=== PATIENT | female | born 1995 | race African-American/Black ===

== ENCOUNTER 2017-03-22 05:43 | Day surgery (SDC) | payer MEDICAID, SELFPAY ==
[2017-03-16 10:47] LABS: Hematocrit 39.1 % (37-47); Hemoglobin 12.8 g/dl (12.0-15.0); Mean Corp Hgb Conc 32.7 g/gl (32-36); Mean Corpuscular Hgb 29.1 pg (27.0-32.0); Mean Corpuscular Volume 88.9 fL (81-99); Mean Platelet Vol. 10.8 fl (6.2-12.0); Platelet Count 297 K/mm3 (150-450); RBC Distribution Width SD 48.5 fl (35.1-43.9); White Blood Count 6.5 K/mm3 (4.4-11.0)
[2017-03-16 10:49] LABS: Scan Indicated on CBC? Y/N NO
[2017-03-16 10:56] LABS: International Normalized Ratio 1.1; Partial Thromboplast Time 31.8 Seconds (24.1-36.2); Prothrombin Time (Protime)PT. 13.4 SECONDS (11.7-14.9)
[2017-03-16 11:20] LABS: Pregnancy, Serum, hCG Quali. NEGATIVE Negative (0-9 Nonpreg)
--- NOTE | 2017-03-21 | FALS_PTH ---
PATIENT: TERRIE LOPEZ LOC: [facility] [place] U#:[id number] AGE/SX: 21/F ROOM: RE03/22/[address]: Dr. Agus Mccord MD : 1995 BED: DIS: 03/22/2017 SPEC #: [id number] RECD: 03/22/17 13:40 STATUS: RODOLFO RETonia #: [id number] ANNETTA: 03/21/17 00:[address]: Agus Mccord DEPT: SURGICAL PATHOLOGY RECD BY: Paul Hilario ENTERED: 03/22/17 13:40 SP TYPE: FALL TUBES OTHR DR: No Primary Care Phys Tissues: Fallopian tube Procedures: Surgery Specimen Level II HEADER OPERATION: Laparoscopic salpingectomy, bilateral PRE-OP DIAGNOSIS: Sterilization request TISSUE SUBMITTED: Bilateral fallopian tubes MICROSCOPIC DIAGNOSIS Bilateral fallopian tubes, salpingectomy: Bilateral fallopian tubes including fimbrial ends, no pathologic diagnosis. SJ:raghav 03/23/17 MICROSCOPIC DESCRIPTION Slides are reviewed. GROSS DESCRIPTION Received is one container labeled with the patient's name and designated right and left fallopian tubes. The fallopian tubes are not designated. The specimen consists of two fallopian tubes including fimbrial ends with an average length of 7.5 and an average diameter of 0.5 cm. No mass lesions are seen. Assistant Softball Coach sections are submitted in two cassettes as follows: 1 ? one fallopian tube, 2 ? the other fallopian tube. / AM:raghav 03/22/17 TC:4 CPT: 38689 x2
[2017-03-22 06:12] VITALS: BP 114/72; PULSE 60; RESP 14; TEMP 36.8; O2SAT 100; BMI 19.5
[2017-03-22 06:12] LABS: Internal QC Validated? YES +Cl - CLEAR BKGD; Pregnancy, Urine Negative Negative
--- NOTE | 2017-03-22 07:39 | PCM.DC ---
You will use the following diet at home:: No restrictions Discharge Activity: Return to Normal Activity, May Drive, May not drive while taking narcotic pain medications., May Shower Return to work on:: 03/25/17 May shower in (days): 0 May resume sexual activity in: 2 weeks Call your doctor if your incision/area has: Sudden Increased Bleeding, Increased Pain/ Swelling, Increased Redness, Foul Smelling Discharge, Swelling at the incision site Call your doctor if you observe: Fever of 101 or Higher, Inability to urinate, Inability to have a bowel movement, Using more than one pad per hour, Shortness of breath, Chest pain, Calf discomfort, Uncontrolled pain Remove Dressing in (days):: 2 Cleanse incision/area with: Soap & Water Allergies/Adverse Reactions: Allergies No Known Allergies Allergy (Verified 02/22/17 11:12) Medications to take at Discharge Vit No.130/Iron/FA [ Tablet] 1 each PO DAILY 06/25/16 Ibuprofen [Motrin] 800 mg PO TID PRN PRN #30 tab 03/22/17 Oxycodone [Oxyir] 5 mg PO Q4H PRN PRN 7 Days #20 tab 03/22/17 The following prescriptions were given: Oxycodone [Oxyir] 5 mg PO Q4H PRN PRN 7 Days #20 tab PRN Reason: Severe Pain (6-10/10) Ibuprofen [Motrin] 800 mg PO TID PRN PRN #30 tab PRN Reason: pain or cramping Primary Care Physician: Care Physician,No Primary [Primary Care Provider] - Please Follow Up With: Agus Mccord MD When: one week Proposed Discharge Date: 03/22/17
--- NOTE | 2017-03-22 07:41 | PCM.OPRPT ---
Problem List (1) Request for sterilization Status: Chronic Report of Operation Date of Procedure: 03/22/17 Pre-Operative Diagnosis: Requests permanent sterilization Post-Operative Diagnosis: same Surgery/Procedure Performed:: Laparoscopic bilateral salpingectomy Description of Surgical Findings:: Normal appearing uterus, cervix, fallopian tubes and ovaries. Normal appearing liver, gallbladder, appendix, and stomach. turner splitter machine operator: Maria Del Caremn [place] Type of Anesthesia:: General Anesthesiologist: Abhinav Burns Specimen's removed: right and left fallopian tubes Drains: none Estimated Blood Loss (mL): minimal Fluids Replaced: 800cc Description of Procedure: Kirstin reconfirmed desire for permanent sterilization prior to being taken to the OR. She had an IV running. She was given two grams of Cefotetan IV prior to the case for surgical prophylaxis. General anesthesia was introduced without complication. She was then prepped and draped in the dorsal lithotomy position. SCDs were in place throughout the case and into recovery. The bladder was drained with a red rubber catheter. Attention was first directed to the vagina where a acorn style uterine manipulator was placed into the cervix. Attention was then directed to the abdomen where a 5 mm vertical incision was made in the lower base of the umbilicus. The underlying subcutaneous tissue was bluntly dissected down to the level of fascia using a Mayelin clamp. A veress needle was then placed through the umbilical defect into the abdominal cavity. The abdomen was then inflated to 12 Torr pressure with CO2 gas. The Veress needle was removed and replaced with a 5mm trocar and sleeve. The trocar was removed and replaced with the laparoscope. Findings were as mentioned previously. Two 5mm lateral side ports were placed under direct visualization of the laparoscope lateral to the inferior epigastric vessels and 6 cm below the level of the umbilicus. Hemostasis was excellent after placement. The left fallopian tube was then elevated and the mesosalpinx dissected from the distal fimbriated end to the cornua using the ligasure device. The tube was then amputated at the cornua. The tube was removed through the left port. In a similar fashion the right fallopian tube was removed. Hemostasis was excellent at the dissection sites. The lateral side ports were then removed under direct visualization of the laparoscope. Gas was evacuated from the abdomen and the umbilical port site was removed. The skin incisions were closed with 4-0 Monocryl suture. The incision sights were injected with 0.25% Marcaine for anesthetic purposes. The uterine manipulator was removed. Sponge lap and needle counts were correct. She was reversed from anesthesia and taken to the recovery room in stable condition. Grafts/Implants Used: none - Complications none - Admit VTE Documentation VTE Present on Admission: No VTE Mechan Device Prophylaxis: SCD's VTE Pharm Prophylaxis ordered?: No
[2017-03-22] MEDS: Bupivacaine 0.25% 30 ML Vial (08:09)
[2017-03-22 08:27] VITALS: BP 114/72; BP 129/90; PULSE 70; RESP 16; TEMP 36.2; O2SAT 100
[2017-03-22 08:45] VITALS: BP 114/72; BP 131/86; PULSE 48; RESP 16; O2SAT 100
[2017-03-22 09:00] VITALS: BP 114/72; BP 124/83; PULSE 42; RESP 14; O2SAT 99
[2017-03-22 09:15] VITALS: BP 114/72; BP 132/75; PULSE 45; RESP 14; TEMP 36.2; O2SAT 100
== END 2017-03-22 10:02 | disposition home or self-care (01) ==
LOC: SDC 05:44 → AC 05:45
PROVIDERS: Anesthesiology; Visit Provider Obstetrics & Gynecology
PROC: (CPT 58661; principal; 2017-03-22 07:15)
DX: Z30.2 Encounter for sterilization (principal); F17.200 Nicotine dependence, unspecified, uncomplicated
CPT/HCPCS: 58661; 36415; 81025; 84703; 85027; 85610; 85730; 86850; 86870; 86900; 88302; J7120; J2405

== ENCOUNTER 2017-05-25 19:34 | Emergency (ER) | payer MEDICAID, SELFPAY ==
[2017-05-25 19:37] VITALS: BP 124/74; PULSE 75; RESP 14; TEMP 36.6; O2SAT 100; BMI 19.5
--- NOTE | 2017-05-25 19:42 | NURSING ---
RN CALLED FOR EKG, PULLED OLD EKG'S FOR
--- NOTE | 2017-05-25 20:37 | EKG12_ITS ---
Test Reason : CP Blood Pressure : / mmHG Vent. Rate : 074 BPM Atrial Rate : 074 BPM P-R Int : 126 ms QRS Dur : 074 ms QT Int : 412 ms P-R-T Axes : 020 061 040 degrees QTc Int : 457 ms Normal sinus rhythm Normal ECG Confirmed by ANA DOWNEY, JENA ([id number]), telegraph editor JON HOWARD ([id number] on 05/29/2017 2:56:08 PM Referred By: NACHO Confirmed By:JENA PEREZ MD
--- NOTE | 2017-05-25 21:15 | RAD_ITS ---
STUDY: X-RAY CHEST REASON FOR EXAM: Female, 21 years old. Chest pain and shortness of breath x1 week TECHNIQUE: Frontal and lateral views of the chest. COMPARISON: None. FINDINGS: The lungs are clear and expanded. There is no demonstrated pleural abnormality. Normal size heart. Normal mediastinum and braydon. Normal visualized pulmonary arteries. Normal visualized aortic arch and descending thoracic aorta. There is a dextroscoliosis of the thoracic spine. Normal visualized ribs, clavicles, and shoulders. There is no demonstrated abnormality of the visualized soft tissue structures of the upper abdomen. RAD/Chest PA and Lateral IMPRESSION: Normal x-ray examination of the chest. Electronically Signed: Jose Means MD at 21:30 EDT , Service support ,
[2017-05-25 21:35] VITALS: BP 140/86; PULSE 67; RESP 12; O2SAT 100
[2017-05-25 21:40] LABS: Absolute Lymphocyte Count 1.69 X10^3/ul (0.83-4.51); Absolute Neutrophil Count 4.1 X10^3/uL (2.0-7.7); Basophil# 0.01 X10^3/uL; Basophil% 0.2 % (0-1); Eosinophil# 0.02 X10^3/uL; Eosinophils% 0.3 % (0-5); Hematocrit 36.7 % (37-47); Hemoglobin 11.9 g/dl (12.0-15.0); Lymphocyte # 1.69 X10^3/ul (4.0); Lymphocyte % 26.9 % (19-41); Mean Corp Hgb Conc 32.4 g/gl (32-36); Mean Corpuscular Hgb 28.5 pg (27.0-32.0); Mean Corpuscular Volume 87.8 fL (81-99); Mean Platelet Vol. 10.5 fl (6.2-12.0); Monocyte# 0.47 X10^3/uL; Monocyte% 7.5 % (0-10); Neutrophil # 4.08 X10^3/uL (2.7-7.7); Neutrophil % 64.9 % (47-70); Platelet Count 257 K/mm3 (150-450); Red Blood Count 4.18 M/mm3 (4.2-5.4); White Blood Count 6.3 K/mm3 (4.4-11.0)
[2017-05-25 21:43] LABS: Anion Gap 6 (5-15); BUN 13 mg/dL (7-18); BUN/Creat Ratio 15.3 RATIO (10-20); Calcium,Total 8.8 mg/dL (8.5-10.1); Chloride 107 mmol/L (98-107); Creatinine, Serum 0.85 mg/dL (0.55-1.02); EST Glomerular Filtration Rate 88 mL/min (>60); Est Glom Filt Rate - Afr Amer 107 mL/min (>60); Estimated Creatinine Clearance 87.02 ml/min; Glucose 54 mg/dL (74-106); Potassium 3.8 mmol/L (3.5-5.1); Sodium Level 140 mmol/L (136-145)
[2017-05-25 21:49] LABS: POSITIVE COUNT NO; POSITIVE DIFFERENTIAL NO; POSITIVE MORPHOLOGY NO
[2017-05-25 21:57] LABS: D-Dimer Quantitative (DVT/PE) < 0.27 FEU/ug/m (0.27-0.49)
--- NOTE | 2017-05-25 22:22 | ED.DCSUM_ITS ---
- ER Visit Summary Date of Service: 05/25/17 Chief Complaint: Chest pain History of Present Illness: The patient is a 21 F who states that for about the past week she has had a intermittent left of sternal chest pain. Nonradiating. She notes that it feels like the wing gets knocked out of her but not as bad. She denies any sweating. Sometimes she feels like her heart is racing. She denies any weight gain or weight loss. She gave in November of this past year and denies any complications. She notes no leg swelling. No headaches. No rashes. Abdominal symptoms. Physical Examination: Afebrile vital signs are stable Gen: Well-nourished well-developed Head: Normocephalic atraumatic Eyes: Perrl EOMI ENT: TMs clear no rhinorrhea moist mucous membranes Neck: Supple no lymphadenopathy no JVD nontender CVS: Regular rate rhythm no murmurs normal S1-S2 Respiratory: No distress clear to auscultation bilaterally chest nontender Abdomen: Soft nontender nondistended normal bowel sounds no masses Back: Nontender Extremity: Nontender no edema Skin: Normal color no rash Neuro: alert orientated ?3 CN II-XII intact normal strength sensation reflexes gait cerebellar Psych: Normal affect normal mood Test Results: EKG shows sinus at a rate of 74. Chest x-ray is negative. Hemoglobin 11.9. Glucose of 54. D-dimer troponin negative. Emergency Department Course and Treatment: She does not appear symptomatic from her hypoglycemia. Patient states that she had 3 sloppy Jerry's and a bagel for dinner at work. The patient will be placed on Pepcid. She is to establish primary care. Referral was given. Impression: 1. Chest pain This note was generated with [employer] dictation software. It may contain incorrect words, spelling, and punctuation that were not noted in review of the chart prior to signing ED Disposition - Plan for ED Patient: Disposition: Home or Assisted Living Chief Complaint: Chest Pain Instructions: ED Chest Pain NonCardiac Prescriptions: Famotidine [Pepcid] 20 mg PO BID #28 tab Referrals: Nadiya Nice MD [STAFF PHYSICIAN] - (call today to arrange follow up )
[2017-05-25 22:32] VITALS: BP 125/71; PULSE 69; RESP 15; O2SAT 99
== END 2017-05-25 22:33 | disposition home or self-care (01) ==
PROVIDERS: Emergency Provider Emergency Medicine
DX: R07.9 Chest pain, unspecified (principal); Z72.0 Tobacco use
CPT/HCPCS: 71046; 80048; 84484; 85025; 85379; 93005; 99284

== ENCOUNTER 2017-07-18 10:27 | Emergency (ER) | payer MEDICAID, SELFPAY ==
[2017-07-18 10:27] VITALS: BP 112/67; PULSE 84; RESP 16; TEMP 36.7; O2SAT 99; BMI 18.7
[2017-07-18] MEDS: 0.9% Normal Saline 1,000 ML 1000 ML IV (11:01)
[2017-07-18] MEDS: Ondansetron 4 MG/2 ML Vial IV (11:02)
[2017-07-18] MEDS: Ketorolac 30 MG/ML Syringe IV (11:02)
[2017-07-18 11:14] LABS: Mucous, Urine 0 SEEN /hpf (<or=2+)
[2017-07-18 11:18] LABS: Absolute Lymphocyte Count 1.97 X10^3/ul (0.83-4.51); Absolute Neutrophil Count 3.2 X10^3/uL (2.0-7.7); Basophil# 0.02 X10^3/uL; Basophil% 0.4 % (0-1); Color, Urine Yellow (Yellow); Eosinophil# 0.04 X10^3/uL; Eosinophils% 0.7 % (0-5); Glucose, Dipstick Normal (Normal); Hematocrit 42.2 % (37-47); Hemoglobin 13.7 g/dl (12.0-15.0); Ketone-Dipstick 50 mg/dl (Negative); Leukocyte Esterase-Dipstick 100 /ul (Negative); Lymphocyte # 1.97 X10^3/ul (4.0); Lymphocyte % 34.6 % (19-41); Mean Corp Hgb Conc 32.5 g/gl (32-36); Mean Corpuscular Hgb 28.8 pg (27.0-32.0); Mean Corpuscular Volume 88.8 fL (81-99); Mean Platelet Vol. 10.6 fl (6.2-12.0); Monocyte# 0.42 X10^3/uL; Monocyte% 7.4 % (0-10); Neutrophil # 3.23 X10^3/uL (2.7-7.7); Neutrophil % 56.7 % (47-70); Nitrite-Dipstick Negative (Negative); Occult Blood-Urine 50 /ul (Negative); Platelet Count 251 K/mm3 (150-450); Protein-Dipstick 15 mg/dl (Negative); RBC Distribution Width CV 14.6 % (11.6-14.6); RBC Distribution Width SD 47.5 fl (35.1-43.9); Red Blood Count 4.75 M/mm3 (4.2-5.4); Specific Gravity, Urine 1.025 (1.002-1.030); Urine Bilirubin Dipstick Negative (Negative); Urine Clarity Sl. Cloudy (Clear); Urine Urobilinogen Normal (Normal); White Blood Count 5.7 K/mm3 (4.4-11.0)
[2017-07-18 11:20] LABS: POSITIVE COUNT NO; POSITIVE DIFFERENTIAL NO; POSITIVE MORPHOLOGY NO
[2017-07-18 11:24] LABS: Bacteria 1+ /hpf (None Seen); Red Blood Cells-Urine 0-5 SEEN /hpf (0-5); Squamous Epithelial Cells - UA 0-5 SEEN /hpf (5-10); White Blood Cells 10-25 SEEN /hpf (0-5)
[2017-07-18 11:31] LABS: Anion Gap 8 (5-15); BUN 12 mg/dL (7-18); BUN/Creat Ratio 14.3 RATIO (10-20); Calcium,Total 9.1 mg/dL (8.5-10.1); Chloride 106 mmol/L (98-107); Creatinine, Serum 0.84 mg/dL (0.55-1.02); EST Glomerular Filtration Rate 89 mL/min (>60); Est Glom Filt Rate - Afr Amer 108 mL/min (>60); Glucose 84 mg/dL (74-106); Lipase 145 U/L (73-393); Potassium 4.1 mmol/L (3.5-5.1); Sodium Level 141 mmol/L (136-145)
[2017-07-18 11:34] LABS: Pregnancy, Serum, hCG Quali. NEGATIVE Negative (0-9 Nonpreg)
[2017-07-18 11:44] LABS: Lactic Acid 0.6 mmol/L (0.4-2.0)
[2017-07-18] MEDS: Ceftriaxone 1 GM/50 ML BAG IV (12:29)
[2017-07-18 12:32] LABS: AST(SGOT) 14 U/L (15-37); Alanine Aminotransfer ALT/SGPT 16 U/L (13-56); Albumin, Serum 4.3 g/dL (3.2-5.0); Alkaline Phosphatase 65 U/L (45-117); Bilirubin, Direct 0.12 mg/dL (0.00-0.30); Globulin 4.2 g/dL (2.2-4.2); Protein, Total 8.5 g/dL (6.4-8.2)
[2017-07-18 12:42] VITALS: BP 114/78; PULSE 80; RESP 16; O2SAT 99
[2017-07-18 13:16] LABS: Chlamydia Trachomatis by PCR Negative (Negative); Neisserai gonorrhoeae by PCR Negative (Negative); Probe Check PASS; Sample Adequacy Control PASS; Specimen Processing Control PASS
--- NOTE | 2017-07-18 13:19 | ED.DCSUM_ITS ---
- ER Visit Summary Date of Service: 07/18/17 Chief Complaint: Abdominal pain History of Present Illness: The patient is a [address] Mccord. She does not have a primary care physician. She reports that she has abdominal pain that began 2 days ago. It is a sharp, cramping pain that is 10 out of 10 severity. It is worsened by stretching and relieved by remaining still. She has had nausea without vomiting. No diarrhea. Her last bowel movement was 2 days ago. Typically she does go every other day. She denies any dysuria or frequency. She reports her last menstrual period was approximately 1 week ago. She has been spotting off and on for the past month. Physical Examination: Vitals: Stable. Afebrile. General: Well-nourished and well-developed. Head: Normocephalic atraumatic. Neck: Supple, no lymphadenopathy. No JVD. Nontender. Cardiovascular: Regular rate and rhythm. No murmurs. Respiratory: No respiratory distress. Clear to auscultation bilaterally. Abdominal: Soft, mild diffuse tenderness to palpation that is worst in the epigastric region, nondistended, normal bowel sounds. No guarding, rebound, or peritoneal signs. Back: Nontender. Extremities: Nontender, no edema. Skin: Normal color, no rash. Neurologic: Alert and oriented ?3. Cranial nerves II through XII are intact. Normal strength and sensation. Psych: Normal affect. Test Results: CBC is normal. Chem-7 is normal. LFTs are remarkable for a total protein of 8.5 and AST of 14. Lipase is normal. UA has 10-25 white blood cells and 1+ bacteria. test is negative. GC chlamydia is negative. Emergency Department Course and Treatment: Patient was treated Toradol and Zofran IV and is resting comfortably. When her urine returned she was given a dose of Rocephin IV. Treatment Plan: Patient will be discharged with Macrobid and Zofran. Instructed to follow-up with Dr. Mccord in 2 days as previously scheduled. Return to the emergency department for any worsening symptoms. Disposition: To home in improved and stable condition. Impression: 1. UTI. This note was generated with [employer] software. It may contain incorrect words, spelling, and punctuation that were not noted in review of the chart prior to signing ED Disposition - Plan for ED Patient: Disposition: Home or Assisted Living Chief Complaint: Abd Pain Instructions: ED UTI Cystitis Female Prescriptions: Nitrofurantoin Macrocrystals [Macrobid] 100 mg PO Q12 #14 capsule Referrals: Agus Mccord MD [STAFF PHYSICIAN] - Keep Tanika appointment
== END 2017-07-18 13:39 | disposition home or self-care (01) ==
LOC: ED 10:46
PROVIDERS: Emergency Provider Emergency Medicine
DX: N39.0 Urinary tract infection, site not specified (principal); Z72.0 Tobacco use
CPT/HCPCS: 80048; 80076; 81001; 83605; 83690; 84703; 85025; 87491; 87591; 96365; 96375; 99283; J7030; A4216; J2405

== ENCOUNTER → 2017-09-19 09:05 | Outpatient (CLI) | payer MEDICAID, SELFPAY ==
[2017-09-19 10:44] LABS: Hematocrit 41.4 % (37-47); Hemoglobin 13.1 g/dl (12.0-15.0); Mean Corp Hgb Conc 31.6 g/gl (32-36); Mean Corpuscular Hgb 27.9 pg (27.0-32.0); Mean Corpuscular Volume 88.3 fL (81-99); Mean Platelet Vol. 10.6 fl (6.2-12.0); Platelet Count 324 K/mm3 (150-450); RBC Distribution Width CV 13.6 % (11.6-14.6); RBC Distribution Width SD 43.9 fl (35.1-43.9); Red Blood Count 4.69 M/mm3 (4.2-5.4); White Blood Count 6.7 K/mm3 (4.4-11.0)
[2017-09-19 10:48] LABS: Scan Indicated on CBC? Y/N NO
[2017-09-19 10:59] LABS: Hemoglobin A1c 5.3 % (4.2-6.3)
[2017-09-19 11:19] LABS: Follicle Stimulating Hormone 10.7 mIU/mL; Free T3 2.7 pg/mL (2.18-3.98); Luteinizing Hormone 9.1 mIU/mL; Prolactin 13.1 ng/mL; Thyroid Stim Hormone (TSH) 1.84 uIU/mL (0.358-3.74)
== END ==
PROVIDERS: Visit Provider Obstetrics & Gynecology
DX: N92.1 Excessive and frequent menstruation with irregular cycle (principal)
CPT/HCPCS: 36415; 83001; 83002; 83036; 84146; 84439; 84443; 84481; 85027

== ENCOUNTER → 2017-11-02 11:00 | Outpatient (CLI) | payer MEDICAID, SELFPAY ==
[2017-11-02 17:06] LABS: Chlamydia Trachomatis by PCR Negative (Negative); Neisserai gonorrhoeae by PCR Negative (Negative); Probe Check PASS; Sample Adequacy Control PASS; Specimen Processing Control PASS
[2017-11-07 09:44] LABS: HPV Reflexed? NOT INDICATED
== END ==
LOC: WOBLAB 11:01 → LABSPEC 11:01
PROVIDERS: Visit Provider Obstetrics & Gynecology
DX: Z12.4 Encounter for screening for malignant neoplasm of cervix (principal); Z11.3 Encounter for screening for infections with a predominantly sexual mode of transmission
CPT/HCPCS: 87491; 87591; 88175; G0145

== ENCOUNTER 2018-05-25 18:13 | Emergency (ER) | payer MEDICAID, SELFPAY ==
[2018-05-25 18:15] VITALS: BP 134/76; PULSE 95; RESP 16; TEMP 36.8; O2SAT 93; BMI 19.1
--- NOTE | 2018-05-25 18:51 | ED.DCSUM_ITS ---
- ER Visit Summary Date of Service: 05/25/18 Chief Complaint: Dysuria History of Present Illness: The patient is a 22 F who presents with dysuria, frequency and urgency for about a week. She has no vaginal discharge, she has no pelvic pain or dyspareunia. She has no suprapubic pain. She apparently just got a call from her boyfriend that he has a herpes outbreak. She has no outbreaks. Physical Examination: Her exam is unremarkable she has a soft and nontender abdomen no CVA tenderness, she appears well in no acute distress. Emergency Department Course and Treatment: Patient will be treated for urinary tract infection, GC and Chlamydia were sent, she has no current outbreak of herpes therefore no treatment is indicated at this time, she has no symptoms. She is educated about protection and how condoms do not protect against HSV. She understands all this now. Disposition: Discharge stable condition Impression: Urinary tract infection This note was generated with [employer] dictation software. It may contain incorrect words, spelling, and punctuation that were not noted in review of the chart prior to signing ED Disposition - Plan for ED Patient: Disposition: Home or Assisted Living Instructions: ED UTI Cystitis Female Prescriptions: Smz/Tmp Ds [Bactrim Ds] 1 tab PO BID #14 tab Referrals: Agus Mccord MD [Primary Care Provider] -
[2018-05-25 19:27] LABS: Mucous, Urine 0 SEEN /hpf (<or=2+)
[2018-05-25 19:45] LABS: Color, Urine Yellow (Yellow); Glucose, Dipstick Normal (Normal); Ketone-Dipstick 50 mg/dl (Negative); Leukocyte Esterase-Dipstick 100 /ul (Negative); Nitrite-Dipstick Negative (Negative); Occult Blood-Urine 50 /ul (Negative); Protein-Dipstick 30 mg/dl (Negative); Urine Bilirubin Dipstick Negative (Negative); Urine Clarity Sl. Cloudy (Clear); Urine Urobilinogen Normal (Normal)
--- NOTE | 2018-05-25 19:46 | ED.RN ---
sent additional urine for sample.
[2018-05-25 19:48] LABS: Internal QC Validated? YES +Cl - CLEAR BKGD; Pregnancy, Urine Negative Negative
[2018-05-25 20:17] LABS: White Blood Cells 0-5 SEEN /hpf (0-5)
[2018-05-25 20:18] LABS: Bacteria 1+ /hpf (None Seen); Red Blood Cells-Urine 0-5 SEEN /hpf (0-5); Squamous Epithelial Cells - UA 0-5 SEEN /hpf (5-10)
[2018-05-25 21:24] LABS: Chlamydia Trachomatis by PCR Negative (Negative); Neisserai gonorrhoeae by PCR Negative (Negative); Probe Check PASS; Sample Adequacy Control PASS; Specimen Processing Control PASS
== END 2018-05-25 19:47 | disposition home or self-care (01) ==
PROVIDERS: Emergency Provider Emergency Medicine; Family Provider Obstetrics & Gynecology; PCP Obstetrics & Gynecology
DX: N39.0 Urinary tract infection, site not specified (principal); Z20.2 Contact with and (suspected) exposure to infections with a predominantly sexual mode of transmission; Z72.0 Tobacco use
CPT/HCPCS: 81001; 81025; 87491; 87591; 99282

== ENCOUNTER → 2018-07-19 13:41 | Outpatient (CLI) | payer MEDICAID, SELFPAY ==
[2018-07-19 18:30] LABS: Chlamydia Trachomatis by PCR Negative (Negative); Neisserai gonorrhoeae by PCR Negative (Negative); Probe Check PASS; Sample Adequacy Control PASS; Specimen Processing Control PASS
== END ==
PROVIDERS: Visit Provider Obstetrics & Gynecology
DX: Z11.3 Encounter for screening for infections with a predominantly sexual mode of transmission (principal)
CPT/HCPCS: 87491; 87591

== ENCOUNTER 2018-09-03 20:20 | Emergency (ER) | payer MEDICAID, SELFPAY ==
[2018-09-03 20:21] VITALS: BP 115/73; PULSE 106; RESP 17; TEMP 36.6; O2SAT 98; BMI 19.2
--- NOTE | 2018-09-03 20:30 | EKG12_ITS ---
Test Reason : CP Blood Pressure : / mmHG Vent. Rate : 101 BPM Atrial Rate : 101 BPM P-R Int : 116 ms QRS Dur : 082 ms QT Int : 336 ms P-R-T Axes : 076 047 022 degrees QTc Int : 435 ms Sinus tachycardia Nonspecific T wave abnormality Abnormal ECG Confirmed by RITA DOWNEY, PARI ([id number]), purchasing expeditor JON HOWARD ([id number]) on 09/05/2018 1:16:14 PM Referred By: DR DUEÑAS Confirmed By:MICHAEL SALINAS MD
--- NOTE | 2018-09-03 21:05 | ED.RN ---
PT REPORTS, I AM FEELING BETTER AND I NEED TO GO BACK TO WORK. I AM GOING TO LEAVE. PT EDUCATED TO RETURN TO ED FOR ANY NEW OR WORSENED SX. PT AMBULATES OUT OF DEPT BY SELF.
== END 2018-09-03 21:05 | disposition left against medical advice (07) ==
LOC: ED 21:38
PROVIDERS: Emergency Provider Emergency Medicine
DX: R69 Illness, unspecified (principal); Z53.21 Procedure and treatment not carried out due to patient leaving prior to being seen by health care provider
CPT/HCPCS: 93005

== ENCOUNTER → 2018-09-26 13:45 | Outpatient (CLI) | payer MEDICAID, SELFPAY ==
[2018-09-03 20:21] VITALS: BMI 19.2
--- NOTE | 2018-09-26 11:30 | ECC_PTH ---
PATIENT: TERRIE LOPEZ LOC: [facility] U#:[id number] AGE/SX: 29/F ROOM: RE09/26/[address]: Dr. Rene Chavez MD : 1995 BED: DIS: SPEC #: [id number] RECD: 09/26/18 13:44 STATUS: RODOLFO RETonia #: [id number] ANNETTA: 09/26/18 11:[address]: Rene Chavez DEPT: SURGICAL PATHOLOGY RECD BY: Derik Prakash ENTERED: 09/27/18 07:41 SP TYPE: ECC OT DR: Sejal Primary Care Phys Tissues: Endocervical Procedures: Surgery Specimen Level IV HEADER OPERATION: ECC PRE-OP DIAGNOSIS: Postcoital bleeding TISSUE SUBMITTED: ECC MICROSCOPIC DIAGNOSIS ECC: Fragments of benign endocervical mucosa, blood and mucous. Fragments of benign endometrial tissue may represent lower uterine segment. SJ:raghav 09/28/18 MICROSCOPIC DESCRIPTION Slides are reviewed. GROSS DESCRIPTION Received in fixative is one container labeled with the patient's name and designated ECC. The specimen consists of multiple fragments of hemorrhagic mucoid tissue that in aggregate measure 2.5 x 0.5 x 0.1 cm. The specimen is totally submitted in one cassette. / SJ:raghav 09/27/18 TC:4 CPT: 09257
[2018-10-03 09:41] LABS: HPV APTIMA, High Risk Negative (Negative)
== END ==
PROVIDERS: Referring Provider Obstetrics & Gynecology; Visit Provider Obstetrics & Gynecology
DX: Z12.4 Encounter for screening for malignant neoplasm of cervix (principal); N93.0 Postcoital and contact bleeding
CPT/HCPCS: 88175; 88305; G0145

== ENCOUNTER → 2018-11-14 13:54 | Outpatient (CLI) | payer MEDICAID, SELFPAY ==
[2018-11-16 08:56] LABS: HSV 1 IgG < 0.91 index (0.00-0.90)
[2018-11-17 08:08] LABS: HSV 1 By PCR Negative (Negative)
[2018-11-19 13:07] LABS: HSV 2 By PCR Positive (Negative)
== END ==
PROVIDERS: Visit Provider Obstetrics & Gynecology
DX: N76.6 Ulceration of vulva (principal)
CPT/HCPCS: 86695; 86696; 87529

== ENCOUNTER 2018-12-09 18:39 | Emergency (ER) | payer MEDICAID, SELFPAY ==
[2018-12-09 18:41] VITALS: BP 149/95; PULSE 89; RESP 14; TEMP 36.2; O2SAT 97; BMI 20.2
--- NOTE | 2018-12-09 19:19 | ED.VIS.DENTA ---
History of Present Illness Informant: Patient, Significant Other Onset: Yesterday Context: Gradual Onset Timing: Continuous Quality: Sharp Location: left upper mouth Current Severity: Moderate Maximum Severity: Moderate Worsened by: Eating Relieved by: - - Nothing Associated Symptoms: Facial Swellling Narrative: 23-year-old female presents with dental pain. She is been dealing with this tooth it is her left upper first molar for several months initially followed up with a dentist who told her needed to be pulled but refused to go back. She is having pain. Facial swelling. No fevers. No difficulty breathing swallowing or opening closing her mouth. No vomiting. Prior similar symptoms: Yes Recent Illness/Hospitalization: Yes <Alex Landers - Last Filed: 12/09/18 19:42> <Abhinav Dwyer - Last Filed: 12/09/18 23:33> Chief Complaint: Dental Past Medical History Smoking Status: Never smoker <Alex Landers - Last Filed: 12/09/18 19:42> <Abhinav Dwyer - Last Filed: 12/09/18 23:33> - Allergies and Home Meds Allergies/Adverse Reactions: Allergies No Known Allergies Allergy (Verified 12/09/18 18:41) Primary Care Physician: Care Physician,No Primary [Primary Care Provider] - Dentist,Your [STAFF PHYSICIAN] - Review of Systems All systems negative except as indicated General: Denies: Chills, Fever, Sweats ENT: Reports: - - Dental pain. Denies: Rhinorrhea, Sore throat Cardiovascular: Denies: Chest pain Respiratory: Denies: Dyspnea <Alex Landers - Last Filed: 12/09/18 19:42> Physical Exam Vital Signs/Narrative: Vital Signs Temp Pulse Resp BP Pulse Ox 12/09/18 18:41 97.2 F L 89 14 149/95 H 97 Inital Vital Signs reviewed: Yes General: Well nourished, Well developed Head: Normocephalic, Atraumatic ENT: Moist mucous membranes, No nasal trauma, TM's clear Mouth/Throat: Normal inspection lips/gums, Normal oral mucosa, No dental tenderness, No focal abscess, Normal posterior oropharynx, No sublingual edema. Negative for: Trismus, Widespread dental decay Neck: Supple, No lymphadenopathy, Nontender, No JVD Cardiovascular: Regular rate, Regular rhythm, No murmurs Respiratory: No distress, CTA bilaterally, Chest nontender Abdomen: Soft, Nontender, Nondistended, Normal bowel sounds, No masses Back: Nontender Extremities: Nontender, No edema Skin: Normal color, No rash Neurological: Alert, Oriented x3 Psychological: Normal affect <DaniiAlex johns - Last Filed: 12/09/18 19:42> Diagnostic/Tx/Re-eval - Medical Decision Making Patient is dealing with this dental pain for the last several months. She does not have a focal abscess. She does not have trismus. There is no sublingual edema. She will be placed on penicillin and given a prescription for Naprosyn. First doses were given in the emergency department. She will be referred to dental. She was advised to call tomorrow for an appointment. Return precautions given. She was discharged <Alex Landers - Last Filed: 12/09/18 19:42> - Medical Decision Making Patient was seen with me. I did a [id number] examination with the patient. Patient presents with left upper dental pain that is been getting worse. Patient states the pain is worse with chewing. Patient is concerned over possible sepsis from a dental infection. Patient denies any fevers. Vital signs are stable. Patient is afebrile. Patient is in no acute distress. Oral mucosa is pink and moist. There are multiple dental caries of the left upper molars. There is some mild gingival edema. There is no fluctuance. There is no evidence of any abscess. Neck is supple. Trachea is midline. There is no JVD. Patient was given prescriptions for penicillin and Naprosyn. Patient was instructed to follow-up with her dentist. Patient understood and was agreeable with the plan. All questions were answered. <Abhinav Dwyer - Last Filed: 12/09/18 23:33> ED Disposition <Alex Landers - Last Filed: 12/09/18 19:42> <Abhinav Dwyer - Last Filed: 12/09/18 23:33> - Plan for ED Patient: Disposition: Home or Assisted Living Diagnosis: Odontalgia Instructions: Dental Pain Prescriptions: Naproxen [Naprosyn] 500 mg PO BID PRN #20 tab Prescription Printed Penicillin V Potassium 500 mg PO 4X/DAY #40 tab Prescription Printed Referrals: Care Physician,No Primary [Primary Care Provider] - Dentist,Your [STAFF PHYSICIAN] -
[2018-12-09] MEDS: Penicillin Vk 250 MG Tablet 500 MG PO (20:07)
[2018-12-09] MEDS: Naproxen 500 MG Tablet PO (20:07)
== END 2018-12-09 20:11 | disposition home or self-care (01) ==
PROVIDERS: Emergency Provider Physician Assistant Medical
DX: K08.89 Other specified disorders of teeth and supporting structures (principal)
CPT/HCPCS: 99282

== ENCOUNTER 2019-06-24 07:08 | Day surgery (SDC) | payer MEDICAID, SELFPAY ==
[2019-06-19 16:07] LABS: Hematocrit 40.5 % (37-47); Hemoglobin 12.9 g/dL (12.0-15.0); Mean Corp Hgb Conc 31.9 g/dL (32-36); Mean Corpuscular Hgb 28.9 pg (27.0-32.0); Mean Corpuscular Volume 90.6 fL (81-99); Mean Platelet Vol. 10.4 fl (6.2-12.0); Platelet Count 277 K/mm3 (150-450); RBC Distribution Width CV 14.8 % (11.6-14.6); RBC Distribution Width SD 49.8 fl (35.1-43.9); Red Blood Count 4.47 M/mm3 (4.2-5.4); White Blood Count 7.5 K/mm3 (4.4-11.0)
[2019-06-19 16:10] LABS: International Normalized Ratio 0.9; Prothrombin Time (Protime)PT. 12.1 SECONDS (11.7-14.9)
[2019-06-19 16:11] LABS: Partial Thromboplast Time 28.8 Seconds (24.1-36.2)
[2019-06-19 16:33] LABS: EST Glomerular Filtration Rate 93 mL/min (>60); Est Glom Filt Rate - Afr Amer 112 mL/min (>60)
--- NOTE | 2019-06-23 21:37 | PCM.HP.BLA ---
History and Physical Date of Admission: 06/24/19 Surgical History and Physical Kirstin Thacker, a 23 year old female 2 0 0 0 2, presents for RAVH/LSO on June 24, 2019 at 11:00. -- LLQ Pain; Menorrhagia; Postcoital Bleeding -- Heavy menstrual bleeding with cramping and clots; speculum exam reveals no vaginal or cervicall lesions, normal discharge and moderate to small amount of menstrual blood; bimanual pelvic exam reveals no CMT, no adnexel tenderness or masses; oferred trial of Provera or COCs, or surgical consult for hysterectomy. For 2 years approximately she has been having irregular bleeding. She reports that she always bleeds after IC and that her left side is always very painful. She has monthly periods with irregular spotting on and off throughout the month. Vaginal bleeding which began 2 years ago.; which began after childbrith. It is aggravated by intercourse. Associated signs and symptoms are spotting.; Associated signs and symptoms are LLQ pain present nearly every day; L/S about a year ago showed normal pelvis. Additional comments are: just wants bleeding to stop.; Additional comments are: bleeding less on OCPs but still with heavy post coital bleeding; unable to do cryo to cervix due to proximity to posterior vaginal wall. MEDICATIONS HISTORY: Current medications prescribed by our practice are: 1. acyclovir 400 mg tablet, 1 po bid 2. Sprintec (28) 0.25 mg-35 mcg tablet, one tab PO daily ALLERGIES: NKDA Infections - chicken pox - unsure, will check varicella IgG today Illnesses - no serious past illnesses Accidents - no injuries of consequence Hospitalizations - Childbirth Hx Depression-- no meds as of 09/2017; Review of Systems: GENERAL - Denies fever, or chills SKIN - Denies skin changes EYES - Denies visual changes EARS - Denies difficulty hearing NOSE - Denies nasal congestion or bleeding MOUTH - Denies sore throat or difficulty swallowing NECK - Denies pain or swelling RESPIRATORY - Denies shortness of breath or wheezing CARDIOVASCULAR - Denies palpitations or chest pain GASTROINTESTINAL - Denies nausea, vomiting, diarrhea, constipation GENITOURINARY - Denies dysuria, frequency of urination, incontinence of urine MUSCULOSKELETAL - Denies joint or muscle pain NEUROLOGICAL - Denies localized numbness or weakness PSYCHIATRIC - Denies depression or anxiety ENDOCRINE - Denies heat or cold intolerance, weight loss or gain HEMATO-IMMUNOLOGIC - Denies excesive bleeding with cuts SOCIAL HISTORY: Alcohol Use - stopped drinking Smoking - Vap E- Cig Diet - balanced Diet Lifestyle - moderate stress lifestyle and some SO issues Exercise - walking and gym Seat Belt Use - always Employer - [employer] 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 Maternal history of DM II. Paternal history of Cerebrovascular accident(CVA) and DM II. MENSTRUAL HISTORY: LMP Known?- DefiniteAmount/Duration - 4 days, Regularity - Irregular, LMP - 05/21/19, Age Onset Menarche - 10 PAST PREGNANCIES: Total Pregnancies - 2; Full Term Pregnancies - 2; Premature - 0; Abortions, Induced - 0; Abortions, Spontaneous - 0; Ectopics - 0; Multiple Births - 0; Living Children - 2 SURGICAL HISTORY: 1. 06/04/2015 Lap Left ovarian cystectomy ; Dr Agus Mccord 2. 03/22/2017 Lap bilateral salpingectomy ; Dr Agus Mccord PHYSICAL EXAM BP- 140/84 Sitting, Right arm, regular cuff Weight- 123.24385 lbs Height- 65.5 inch BMI:20.20 CONSTITUTIONAL - NAD, well nourished, and well developed SKIN - No rash, lesions, or ulcers HEENT - Normocephalic, PERRLA, EOMI NECK - No nodes, no nuchal rigidity and thyroid normal size and texture LYMPH NODES - Palpation of lymph nodes in neck and groins within normal limits LUNGS - CTA x2 without wheezes, crackles or rales CARDIAC - Regular rate and rhythm without rubs, murmurs, or gallops BREAST - No dominant masses, no tenderness, no axillary adenopathy, no nipple discharge, no skin changes ABDOMEN - Without hepatosplenomegaly, distention, masses, rebound, or guarding; normal bowel sounds; no hernias EXTREMITIES - No edema or calf tenderness NEUROLOGICAL - Cranial nerves II-XII grossly intact PSYCHIATRIC - A and O to time, place, person, mood and affect External Genital Vagina - non-tender without lesions Urethra/Urethral Meatus - non-tender Bladder - non-tender Vagina - vaginal shah are pink and moist without loss of rugae and no evidence of atropy Cervix - No CMT, normal size and features, no lesions or polyps noted; oriented to left posterior vaginal wall Uterus - 5-6 cm in size, mobile and nontender Adnexa - clear without masses or tenderness ASSESSMENT/PLAN: 1. Abdominal Pain,LLQ, Menorrhagia and Postcoital Bleeding Have exhausted options for treating postcoital bleeding such as OCPs and unable to do cryo to the cervix due to proximity to posterior vagina. Discussed options for treatment and patient desires proceeding with RAVH/LSO given she has had tubal and bleeding has persisted. ECC was negative. Discussed RBAs of surgery and all questions answered.
[2019-06-24] VITALS (13 sets, daily range): BP systolic 100–132; BP diastolic 51–87; PULSE 54–85; RESP 14–16; TEMP 36.2–37.3; O2SAT 94–100; BMI 20.2; BMI 20.8
[2019-06-24] MEDS: Lactated Ringers 1,000 ML 100 ML IV ×2 (07:50→08:02)
--- NOTE | 2019-06-24 10:45 | HYST_PTH ---
PATIENT: TERRIE LOPEZ LOC: [facility] [place] U#:[id number] AGE/SX: 23/F ROOM: RE06/24/[address]: Dr. Rene Chavez MD : [id number] BED: DIS: 06/25/2019 SPEC #: [id number] RECD: 06/24/19 14:00 STATUS: RODOLFO MONA #: [id number] ANNETTA: 06/24/19 10:[address]: Rene Chavez DEPT: SURGICAL PATHOLOGY RECD BY: Derik Prakash ENTERED: 06/25/19 09:18 SP TYPE: HYSTERECT OTHR DR: No Primary Care Phys Tissues: Uterus, NOS Procedures: Surgery Specimen Level V HEADER OPERATION: Lap robotic hysterectomy, oophorectomy PRE-OP DIAGNOSIS: Abdominal pain LLQ, menorrhagia and postcoital TISSUE SUBMITTED: Uterus, cervix, left ovary MICROSCOPIC DIAGNOSIS Uterus, cervix and left ovary, hysterectomy and left oophorectomy: Cervix - chronic inflammation. - Negative for dysplasia. See comment. Endometrium - weakly proliferative endometrium. Myometrium - no pathologic diagnosis. Left ovary - physiologic follicular cysts (largest measuring 3.5 cm in greatest dimension). SJ:raghav 06/27/19 COMMENT The entire cervix is examined. Please make reference to previous specimens ([id number]) cervix at 7 o'clock, biopsy with diagnosis of mild to moderate squamous dysplasia and ([id number]) cervix at 4 o'clock, biopsy with diagnosis of mild squamous dysplasia and ([id number]) left ovarian cyst wall, cystectomy with diagnosis of consistent with physiologic follicular cyst and ([id number]) bilateral fallopian tubes, salpingectomy with diagnosis of bilateral fallopian tubes including fimbrial ends, no pathologic diagnosis. MICROSCOPIC DESCRIPTION Slides are reviewed. GROSS DESCRIPTION Received in fixative is one container labeled with the patient's name and designated uterus, cervix, left ovary. The specimen consists of a hysterectomy specimen consisting of uterus with cervix and detached ovary identified as left ovary. The uterus with cervix weighs 78 gm and measures 8.5 x 6 x 4 cm. The serosal surface is bravo, glistening. The ectocervical mucosa is unremarkable. The external os is slit-like in contour. The endocervical canal measures 3 cm in length and the endocervical mucosa is bravo, glistening and unremarkable. The triangular endometrial cavity measures 4 cm in length and up to 1.5 cm in width. The endometrium is bravo, glistening without any mass lesion and measures 0.1 cm in thickness. Sectioning of the uterine wall does not reveal any mass lesion and measures up to 2 cm in thickness. The soft to cystic left ovary measures 4 x 3.5 x 3 cm and weighs 18 gm. The outer surface is smooth without any papillation and inked black. Sections reveal 80% of the ovary is replaced by a cyst measuring 3.5 cm in greatest dimension. The cyst is filled with jimmy-colored fluid. The cyst wall is smooth without any papillation. Two smaller cysts are also noted measuring 0.5 and 0.3 cm in greatest dimension. Disability Specialist sections are submitted in eight cassettes as follows: 1 - anterior cervix, 2??posterior cervix, 3 & 4 - anterior uterine wall, 5 & 6 - posterior uterine wall, 7 & 8 - ovary. / DAGMAR:raghav 06/25/19 The rest of the cervix is submitted in four more cassettes, -12. / DAGMAR:raghav 06/26/19 TC:5 CPT: 03934
[2019-06-24] MEDS: Ropivacaine 0.5% 30 ML Vial (11:32)
--- NOTE | 2019-06-24 12:57 | OP.PCM_ITS ---
Report of Operation Date of Procedure: 06/24/19 Pre-Operative Diagnosis: LLQ Pain; Menorrhagia; Postcoital Bleeding Post-Operative Diagnosis: LLQ Pain; Menorrhagia; Postcoital Bleeding Surgery/Procedure Performed:: Robiotic Assisted Vaginal Hysterectomy and Left Oophorectomy Description of Surgical Findings:: 8 cm uterus with normal-appearing ovaries except for a 5 cm pendulous and cystic left ovary. Absent fallopian tubes. Cervix close to posterior vaginal wall. chemical test engineer: Benjamín Silva Type of Anesthesia:: General - Endotracheal Anesthesiologist: Ritesh Palacios Specimen's removed: Uterus and left ovary Drains: John to straight drain Estimated Blood Loss (mL): Minimal Fluids Replaced: Crystalloid Description of Procedure: Surgeon: Rene Chavez MD, FACOG Indication: This is a 23 year old patient who has been having problems with menorrhagia and postcoital bleeding after having had a tubal ligation performed. She is also been having problems with chronic left lower quadrant pain. Conservative measures have not been helpful. The patient has been counseled regarding the risks, benefits and alternatives of this procedure including the possibility of bleeding, infection, and injury to surrounding structures such as bowel bladder and all questions were answered. She understands that if BSO is needed that she will need to be on HRT for an indefinite period of time. Procedure: Pt taken to the operating room where, after induction of general anesthesia, the patient was prepped and draped in the usual sterile fashion and placed on a non-slip Huggy-u-vac device. Trendelenburg test was satisfactory. Bladder was drained of urine with a John catheter which was left in place. Anterior cervix grasped and cervix was dilated to about 3-4 mm. Uterus sounded to 8 cms. 0-Vicryl suture was placed at the 3:00 and 9:00 position of the cervix. A medium Advincula Kitchen Steward/Stewardess Uterine Manipulator was then placed in the uterus and attention was turned to the laparoscopic portion of the procedure. Ropivocaine 0.5% was injected approximately 2 cm superior to the umbilicus and an 8 mm robotic camera port was introduced directly with intraperitoneal placement confirmed with CO2 insufflation. 8 mm robotic side ports were introduced under direct visualization approximately 9.5 cm lateral and 2 cm inferior to the umbilical port. A 5 mm left upper quadrant port was introduced and airseal insufflation with CO2 was started. The above findings were noted. Robot was docked without difficulty and attention turned to the robotic portion of the procedure. Approximately 25 cc of Ropivicaine was used. Bilateral infundibulopelvic ligaments/mesosalpinx were ligated with 35 elaine bipolar coagulation to the level of the round ligament. The posterior aspect of the cervix was identified and then opened for about 1 cm using 25 watt monopolar cautery identifying the uterine manipulating device which had been placed vaginally. Bladder flap was opened and divided to the level of the round ligaments using monopolar cautery. Progressive bites were then ligated on each side of the cervix with 35 elaine bipolar cautery to the uterine arteries. The anterior vaginal mucosa was entered and cervix circumscribed with monopolar cautery. Uterus and left ovary were removed through the vagina. Vaginal cuff was closed first with 0-Vicryl Edna stitches placed at each angle followed by closure of the mid-cuff with 0-Monocryl V-lock suture in two layers. Pelvis was copiously irrigated with saline and the right and left ureter were noted to peristalse. Robot was undocked and trocars were removed with as much gas as possible. Incisions were closed with 4-0 Monocryl subcuticular sutures and incisions covered with steri-strips. The patient tolerated the procedure well and was taken to the recovery room in satisfactory condition. Sponge, instruments and needle counts were all correct. There were no apparent complications of the surgery. Cefotan 2 gms IV was given prior to the procedure. Estimated Blood Loss: Minimal Specimen to Pathology: Uterus and left ovary Grafts/Implants Used: None - Complications None - Admit VTE Documentation VTE Present on Admission: Yes VTE Mechan Device Prophylaxis: SCD's VTE Pharm Prophylaxis ordered?: Yes
--- NOTE | 2019-06-24 13:03 | DCINST_ITS ---
Discharge Diet: No Restrictions Discharge Activity: Return to Normal Activity, May Not Drive - while taking narcotic pain medications., May Shower, May Take a Tub Bath May resume sexual activity in: 6-8 weeks Call your doctor if your incision/area has: Continuous Slow Oozing, Sudden Inc reased Bleeding, Increased Pain/ Swelling, Increased Redness, Foul Smelling Discharge Call your doctor if you observe: Fever of 101 or Higher, Inability to urinate, Inability to have a bowel movement, Using more than one pad per hour Allergies/Adverse Reactions: Allergies No Known Allergies Allergy (Verified 06/24/19 07:36) Medications to take at Discharge Acyclovir [Zovirax] 400 mg PO BID 12/09/18 Vits [Prenatabs FA] 1 tab PO DAILY 06/18/19 Docusate Sodium [Colace] 100 mg PO BID PRN PRN #60 cap 06/24/19 Oxycodone [Oxyir] 5 mg PO Q6H PRN PRN 7 Days #20 tab 06/24/19 The following prescriptions were given: Docusate Sodium [Colace] 100 mg PO BID PRN PRN #60 cap PRN Reason: Constipation Transmission Status: Received by LIZ PALACIOS RD Oxycodone [Oxyir] 5 mg PO Q6H PRN PRN 7 Days #20 tab PRN Reason: Pain Score 6-10/10 Transmission Status: [facility] Primary Care Physician: Care Physician,No Primary [Primary Care Provider] - Test Results: Test results from this visit will be discussed in further detail at your follow- up appointment, if applicable. Please Follow Up With: Rene Chavez MD When: 2 to 3 weeks
[2019-06-24] MEDS: Dextrose 5%-Lactated Ringers 1,000 ML 150 ML IV ×2 (15:25→21:54)
[2019-06-24] MEDS: Ketorolac 30 MG/ML Syringe IV (17:00)
[2019-06-24] MEDS: Enoxaparin 30 MG/0.3 ML Syringe SC (20:01)
[2019-06-24] MEDS: oxyCODONE 5 MG Tablet PO (20:09)
[2019-06-24] MEDS: Ondansetron 4 MG/2 ML Vial IV (20:09)
[2019-06-24] MEDS: Acyclovir 200 MG Capsule 400 MG PO (22:27)
[2019-06-25] MEDS: Ketorolac 30 MG/ML Syringe IV (00:07)
[2019-06-25 03:20] VITALS: BP 113/52; PULSE 86; RESP 16; TEMP 37.2; O2SAT 98
[2019-06-25 05:58] VITALS: BP 118/66; PULSE 67; RESP 16; TEMP 36.8; O2SAT 99
[2019-06-25] MEDS: Ketorolac 10 MG Tablet PO (05:59)
[2019-06-25] MEDS: oxyCODONE 5 MG Tablet PO (07:03)
[2019-06-25 07:17] VITALS: O2SAT 98
[2019-06-25 08:13] LABS: Hematocrit 31.9 % (37-47); Hemoglobin 10.2 g/dL (12.0-15.0); Mean Corpuscular Volume 90.6 fL (81-99); Mean Platelet Vol. 11.2 fl (6.2-12.0); Platelet Count 225 K/mm3 (150-450); RBC Distribution Width CV 14.8 % (11.6-14.6); RBC Distribution Width SD 49.5 fl (35.1-43.9); Red Blood Count 3.52 M/mm3 (4.2-5.4); White Blood Count 9.4 K/mm3 (4.4-11.0)
[2019-06-25 08:39] LABS: Creatinine, Serum 0.79 mg/dL (0.55-1.02); EST Glomerular Filtration Rate 94 mL/min (>60); Est Glom Filt Rate - Afr Amer 114 mL/min (>60); Estimated Creatinine Clearance 98.63 ml/min
--- NOTE | 2019-06-25 08:39 | PN.OBGYN_ITS ---
Subjective: Patient without complaints. Tolerating diet well. John out but still unable to void. Denies flatus. Pain well controlled. No bleeding. Objective: Wounds are clean, dry, intact. Good urine output. Hemoglobin okay. - Physical Exam Vitals/I&O's: Vital Signs Temp Pulse Resp BP Pulse Ox 98.3 F 67 16 118/66 99 06/25/19 05:58 06/25/19 05:58 06/25/19 05:58 06/25/19 05:58 06/25/19 05:58 Oxygen Delivery Method Room Air Weight: 125 lb 7.088 oz Body Mass Index (BMI) 20.8 Intake and Output for Last 24 Hours 06/23/19 06/24/19 06/25/19 23:59 23:59 23:59 Intake Total 2864.17 / 3864.17 1707.5 / 1707.5 Output Total 250 / 1525 1950 / 1950 Balance 2614.17 / 2339.17 -242.5 / -242.5 Laboratory Results 06/25/19 07:42: WBC 9.4, RBC 3.52 L, Hgb 10.2 L, Hct 31.9 L, MCV 90.6, MCH 29.0, MCHC 32.0, RDW Std Deviation 49.5 H, RDW Coeff of Mary 14.8 H, Plt Count 225, MPV 11.2 06/25/19 07:42: Creatinine Pending, Est GFR (MDRD) Af Amer Pending, Est GFR (MDRD) Non-Af Pending Current Medications Acyclovir (Zovirax) 400 mg PO BID [facility] Last Admin: 06/24/19 22:27 Dose: 400 mg Documented by: Docusate Sodium (Colace) 100 mg PO BID PRN PRN PRN Reason: CONSTIPATION Hydromorphone HCl (Dilaudid Inj) 0.5 mg IV Q3H PRN PRN PRN Reason: Pain Score 4-10/10 Sodium Chloride () 250 mls @ 15 mls/hr IV .[id number] PRN PRN Reason: Saline Flush Sodium Chloride () 250 mls @ 15 mls/hr IV .[id number] PRN PRN Reason: Additional IVPB Infusion Ketorolac Tromethamine (Toradol) 10 mg PO Q6 [facility] Stop: 06/29/19 12:01 Last Admin: 06/25/19 05:59 Dose: 10 mg Documented by: Ondansetron HCl (Zofran) 4 mg IV Q4H PRN PRN PRN Reason: NAUSEA Last Admin: 06/24/19 20:09 Dose: 4 mg Documented by: Oxycodone HCl (Oxyir) 5 mg PO Q4H PRN PRN PRN Reason: Pain Score 4-10/10 Last Admin: 06/25/19 07:03 Dose: 5 mg Documented by: Simethicone (Mylicon) 80 mg PO [facility] Last Admin: 06/24/19 22:27 Dose: 80 mg Documented by: Sodium Chloride () 10 - 40 ml IV UD PRN PRN Reason: SALINE FLUSH Medical Necessity - Tobacco Use Smoking Status: Former smoker Tobacco Use: Vapor Assessment/Plan All Active Problems Ovarian cyst (Acute) Doing well postoperative day #1 status post robotic assisted vaginal hysterectomy and left oophorectomy. Will release to home with routine instructions.
[2019-06-25] MEDS: Acyclovir 200 MG Capsule 400 MG PO (09:43)
[2019-06-25 09:45] VITALS: BP 120/67; PULSE 86; RESP 16; TEMP 36.9; O2SAT 99
== END 2019-06-25 10:12 | disposition home or self-care (01) ==
LOC: SDC 07:09 → AC 07:10 → MS3 08:27
PROVIDERS: Referring Provider Obstetrics & Gynecology; Visit Provider Obstetrics & Gynecology
PROC: 0UT94ZZ Resection of Uterus, Percutaneous Endoscopic Approach (ICD-10-PCS; CPT 58552; principal; 2019-06-24 10:25)
DX: N93.0 Postcoital and contact bleeding (principal); N92.0 Excessive and frequent menstruation with regular cycle; Z87.891 Personal history of nicotine dependence; Z79.899 Other long term (current) drug therapy; N83.02 Follicular cyst of left ovary; Z11.59 Encounter for screening for other viral diseases
CPT/HCPCS: 00940; 58552; S2900; 36415; 82565; 85027; 85610; 85730; 86850; 86900; 86901; 87635; 88307; 99251; 99406; G2023; J7120; G0463; J0330; J2405; U0002

== ENCOUNTER → 2019-10-21 14:38 | Outpatient (CLI) | payer MEDICAID, SELFPAY ==
[2019-06-24 14:57] VITALS: BMI 20.8
== END ==
PROVIDERS: Visit Provider Student in an Organized Health Care Education/Training Program
DX: N39.0 Urinary tract infection, site not specified (principal)
CPT/HCPCS: 87077; 87086; 87088; 87186

== ENCOUNTER → 2020-01-22 10:27 | Outpatient (CLI) | payer MEDICAID, SELFPAY ==
[2020-01-22 09:19] VITALS: BMI 20.5
[2020-01-22 12:36] LABS: Absolute Lymphocyte Count 1.84 X10^3/uL (0.83-4.51); Absolute Neutrophil Count 3.6 X10^3/uL (2.0-7.7); Basophil# 0.02 X10^3/uL; Basophil% 0.3 % (0-1); Eosinophil# 0.04 X10^3/uL; Eosinophils% 0.7 % (0-5); Hemoglobin 12.6 g/dL (12.0-15.0); Lymphocyte # 1.84 X10^3/ul (4.0); Lymphocyte % 31.6 % (19-41); Mean Corp Hgb Conc 32.3 g/dL (32-36); Mean Corpuscular Hgb 29.5 pg (27.0-32.0); Mean Corpuscular Volume 91.3 fL (81-99); Mean Platelet Vol. 10.9 fl (6.2-12.0); Monocyte# 0.27 X10^3/uL; Monocyte% 4.6 % (0-10); NRBC Flagged by Analyzer 0 % (0-5); Neutrophil # 3.64 X10^3/uL (2.7-7.7); Neutrophil % 62.5 % (47-70); Platelet Count 270 K/mm3 (150-450); RBC Distribution Width CV 13.7 % (11.6-14.6); RBC Distribution Width SD 46.1 fl (35.1-43.9); Red Blood Count 4.27 M/mm3 (4.2-5.4); White Blood Count 5.8 K/mm3 (4.4-11.0)
[2020-01-22 13:13] LABS: AST(SGOT) 10 U/L (15-37); Alanine Aminotransfer ALT/SGPT 17 U/L (13-56); Alkaline Phosphatase 51 U/L (45-117); Anion Gap 5 (5-15); BUN 12 mg/dL (7-18); BUN/Creat Ratio 16.8 RATIO (10-20); Calcium,Total 9.2 mg/dL (8.5-10.1); Chloride 107 mmol/L (98-107); Creatinine, Serum 0.72 mg/dL (0.55-1.02); EST Glomerular Filtration Rate 105 mL/min (>60); Est Glom Filt Rate - Afr Amer 128 mL/min (>60); Globulin 4.1 g/dL (2.2-4.2); Glucose 86 mg/dL (74-106); Potassium 3.7 mmol/L (3.5-5.1); Protein, Total 8.1 g/dL (6.4-8.2); Sodium Level 139 mmol/L (136-145); Thyroid Stim Hormone (TSH) 1.51 uIU/mL (0.358-3.74)
== END ==
PROVIDERS: PCP Internal Medicine; Referring Provider Internal Medicine; Visit Provider Internal Medicine
DX: R01.1 Cardiac murmur, unspecified (principal)
CPT/HCPCS: 36415; 80053; 84443; 85025

== ENCOUNTER → 2020-01-29 12:59 | Outpatient (CLI) | payer MEDICAID, SELFPAY ==
[2020-01-22 09:19] VITALS: BMI 20.5
--- NOTE | 2020-01-29 13:02 | ECHOD_ITS ---
Reason For Study: Murmur Procedure This was a 2D Doppler, Color Flow transthoracic echocardiogram. The exam was of adequate technical quality. Exam performed in department. Left Ventricle Normal LV size. Left ventricular systolic function is normal. The estimated ejection fraction is 60 %. No evidence for diastolic dysfunction. No regional wall motion abnormalities noted. Right Ventricle Normal RV size. Normal systolic function. Atria Normal left atrium. Normal right atrium. No doppler evidence for ASD. Mitral Valve There is no mitral annular calcification. Normal mitral valve. Trivial mitral valve insufficiency. Tricuspid Valve The tricuspid valve is not well visualized. Trivial tricuspid valve insufficiency. Aortic Valve Based upon the 2D echocardiographic images obtained a bicuspid aortic valve with mild thickening/calcification cannot be excluded. Trivial aortic valve insufficiency. Pulmonic Valve The pulmonic valve is not well visualized. Trivial pulmonic valve insufficiency. Great Vessels The aortic root is not well visualized. Pericardium/Pleural No pericardial effusion. MMode/2D Measurements & Calculations LVIDd: 4.1 cm IVSd: 0.85 cm LA dimension: 2.5 cm LVIDs: 2.8 cm LVPWd: 0.78 cm FS: 31.5 % LAV(MOD-bp): 34.3 ml LA A4 area: 14.6 cm2 RA A4 area: 7.2 cm2 LAV(MOD-bp) Indexed: 21.7 ml/m2 LAV(MOD-sp2): 28.4 ml LAV(MOD-sp4): 37.4 ml Time Measurements MV dec time: 0.28 sec Doppler Measurements & Calculations MV E max jerrod: 94.7 cm/sec Lat Peak E' Jerrod: 14.7 cm/sec Med Peak E' Jerrod: 9.7 cm/sec MV A max jerrod: 75.9 cm/sec E/E' lat: 6.5 E/E' med: 9.7 MV E/A: 1.2 MV V2 max: 103.5 cm/sec MV P1/2t max jerrod: 102.9 cm/sec Ao V2 max: 130.3 cm/sec MV max P.3 mmHg MV P1/2t: 64.3 msec Ao max P.8 mmHg MV V2 mean: 52.0 cm/sec MV dec slope: 468.8 cm/sec2 MV mean P.3 mmHg MVA(P1/2t): 3.4 cm2 MV V2 VTI: 21.3 cm LV V1 max: 77.8 cm/sec PA V2 max: 102.1 cm/sec LV V1 max P.4 mmHg Interpretation Summary Left ventricular systolic function is normal. The estimated ejection fraction is 60 %. Trivial mitral valve insufficiency. Trivial tricuspid valve insufficiency. Based upon the 2D echocardiographic images obtained a bicuspid aortic valve with mild thickening/calcification cannot be excluded. Trivial aortic valve insufficiency. Trivial pulmonic valve insufficiency. No evidence for diastolic dysfunction. Consider further evaluation of aortic valve anatomy and physiology with transesophageal echocardiogram if clinically indicated. Ordering Physician: Franchesca Fournier Referring Physician: Franchesca Fournier Performed By: Renaldo Hinojosa RCS
== END ==
PROVIDERS: PCP Internal Medicine; Referring Provider Internal Medicine; Visit Provider Internal Medicine
DX: R01.1 Cardiac murmur, unspecified (principal)
CPT/HCPCS: 93306

== ENCOUNTER 2021-02-25 14:05 | Outpatient (CLI) | payer MEDICAID, SELFPAY ==
[2021-02-25 15:18] LABS: Follicle Stimulating Hormone 20.5 mIU/mL; Thyroid Stim Hormone (TSH) 0.39 uIU/mL (0.358-3.74)
== END 2021-02-25 23:59 | disposition short-term general hospital (02) ==
LOC: WOBLAB 14:08
PROVIDERS: PCP Internal Medicine; Referring Provider Obstetrics & Gynecology; Visit Provider Obstetrics & Gynecology
DX: R30.0 Dysuria (principal); N95.1 Menopausal and female climacteric states
CPT/HCPCS: 36415; 83001; 84443; 87086; 87088

== ENCOUNTER → 2022-04-13 | Outpatient (CLI) | payer MEDICAID, SELFPAY ==
[2022-04-13 09:40] LABS: Absolute Neutrophil Count 3.4 X10^3/uL (2.0-7.7); Basophil# 0.03 X10^3/uL; Basophil% 0.5 % (0-1); Eosinophil# 0.03 X10^3/uL; Eosinophils% 0.5 % (0-5); Hematocrit 41.8 % (37-47); Hemoglobin 13.7 g/dL (12.0-15.0); Lymphocyte % 33.2 % (19-41); Mean Corp Hgb Conc 32.8 g/dL (32-36); Mean Corpuscular Hgb 29.7 pg (27.0-32.0); Mean Corpuscular Volume 90.7 fL (81-99); Mean Platelet Vol. 9.6 fl (6.2-12.0); Monocyte# 0.34 X10^3/uL; Monocyte% 5.9 % (0-10); NRBC Flagged by Analyzer 0 % (0-5); Neutrophil # 3.41 X10^3/uL (2.7-7.7); Neutrophil % 59.6 % (47-70); Platelet Count 231 K/mm3 (150-450); RBC Distribution Width CV 13.5 % (11.6-14.6); RBC Distribution Width SD 45.3 fl (35.1-43.9); Red Blood Count 4.61 M/mm3 (4.2-5.4); White Blood Count 5.7 K/mm3 (4.4-11.0)
[2022-04-13 10:38] LABS: ALB/GLOB Ratio 0.9 RATIO (0.9-2.4); AST(SGOT) 14 U/L (15-37); Alanine Aminotransfer ALT/SGPT 18 U/L (13-56); Alkaline Phosphatase 42 U/L (45-117); Anion Gap 7 (5-15); BUN 10 mg/dL (7-18); BUN/Creat Ratio 12.4 RATIO (10-20); Calcium,Total 9.1 mg/dL (8.5-10.1); Chloride 105 mmol/L (98-107); Cholesterol 161 mg/dL (200); EST Glomerular Filtration Rate 90 mL/min (>60); Est Glom Filt Rate - Afr Amer 109 mL/min (>60); Globulin 4.3 g/dL (2.2-4.2); Glucose 89 mg/dL (74-106); High Density Lipoprotein 58 mg/dL; Potassium 3.9 mmol/L (3.5-5.1); Protein, Total 8.3 g/dL (6.4-8.2); Sodium Level 138 mmol/L (136-145); Thyroid Stim Hormone (TSH) 0.68 uIU/mL (0.358-3.74); Triglycerides 75 mg/dL; Very Low Density Lipoprotein 15 mg/dL (5-40)
== END | disposition home or self-care (01) ==
PROVIDERS: PCP Internal Medicine; Referring Provider Nurse Practitioner Gerontology; Visit Provider Nurse Practitioner Gerontology
DX: R07.9 Chest pain, unspecified (principal); R53.83 Other fatigue
CPT/HCPCS: 36415; 80053; 80061; 84443; 85025

== ENCOUNTER 2022-05-09 04:49 | Emergency (ER) | payer MEDICAID, SELFPAY ==
[2022-05-09 04:49] VITALS: BP 129/82; PULSE 78; RESP 14; TEMP 36.9; O2SAT 98; O2SAT 99; BMI 21.9
--- NOTE | 2022-05-09 05:30 | CT_ITS ---
EXAM: CT ABDOMEN AND PELVIS WITH INTRAVENOUS CONTRAST CLINICAL INDICATION: right lower abd pain TECHNIQUE: Helically acquired images were obtained of the abdomen and pelvis with intravenous contrast. This CT exam was performed using one or more of the following dose reduction techniques: automated exposure control, adjustment of the mA and/or kV according to patient size, and/or use of iterative reconstruction technique. This report was created using [employer] report generation technology. CONTRAST: IV 100mL Isovue-370 COMPARISON: None. FINDINGS: LOWER THORAX: Unremarkable. Lung bases are clear. No cardiomegaly. No significant pericardial effusion. ABDOMEN: LIVER: Unremarkable. Homogeneous. No focal mass. GALLBLADDER AND BILE DUCTS: Unremarkable. No calcified gallstones. No gallbladder distention or wall edema. No intra- or extrahepatic biliary ductal dilation. PANCREAS: Unremarkable. No focal cystic or solid mass. SPLEEN: Unremarkable. Normal size without focal cystic or solid mass. ADRENALS: Unremarkable. No nodules. KIDNEYS AND URETERS: Tiny nonobstructing stone in the right kidney. Normal renal size and position. STOMACH AND BOWEL: Unremarkable. No stomach or bowel distention. No focal inflammatory change. PELVIS: APPENDIX: The appendix is normal. BLADDER: Unremarkable. REPRODUCTIVE: Hysterectomy. ABDOMEN and PELVIS: INTRAPERITONEAL SPACE: Unremarkable. No ascites or other fluid collection. No free air. BONES/JOINTS: Unremarkable. No suspicious lytic or blastic abnormality. SOFT TISSUES: Unremarkable. No discrete abdominal or pelvic wall hernia. VASCULATURE: Unremarkable. Abdominal aorta is non-dilated. LYMPH NODES: Unremarkable. No enlarged lymph nodes. CT/Abdomen/Pelvis W IV Cont ONLY IMPRESSION: 1. No acute abnormalities identified in the abdomen/pelvis. 2. Tiny nonobstructing stone in the right kidney. No ureteral stone or renal obstruction. Electronically Signed: Carlo Medina MD at 6:35 EDT ,
--- NOTE | 2022-05-09 05:30 | ED.VIS.GI ---
HPI HPI - GI History of Present Illness Chief Complaint: Abd Pain Detail of Chief Complaint: Right lower quadrant abdominal pain for years since she had a hysterectomy Informant: patient Abdominal Pain/Flank Pain Onset: - (2 years since her hysterectomy.) Context: Gradual Onset Timing: Intermittent Quality: Aching Location: RLQ Current Severity: Mild Maximum Severity: Mild Worsened by: Nothing Relieved by: Nothing Nausea/Vomiting/Emesis GI Symptom: Positive for Nausea; Negative for Vomiting Onset: Today Quality: Negative for Nonbilious, Blood streaks, Coffee ground or Hematemesis Severity: Mild Diarrhea/Melena/Hematochezia GI Symptom: Negative for Diarrhea, Melena or Hematochezia Associated Symptoms Associated Symptoms: Negative for Dysuria, Frequency, Hematuria or Urgency Narrative Narrative: 26-year-old female had a hysterectomy done [address] Rene Chavez who has since retired. Since the surgery she has had intermittent right lower quadrant abdominal pain for 2 years. Said over the last week its been somewhat worse. Denies any dysuria. No fever. No weight change. Normal bowel movements. Believes that she had [address] and believes it is on the right. Denies any vaginal bleeding or discharge. Prior similar symptoms: Yes Recent Illness/Hospitalization: No PFSH PFSH Medical History Anemia Anxiety and depression Chest pain Heart murmur Herpes Mood disorder Ovarian cyst Request for sterilization Tachycardia Home Medications acyclovir 400 mg tablet 400 mg PO BID PRN 11/25/20 [History Last Taken Unknown] Allergy/AdvReac Type Severity Reaction Status Date / Time No Known Allergies Allergy Verified 04/13/22 13:46 Family History Father Hypertension Diabetes Myocardial infarction, Onset Age: 50 Heart disease Grandmother COPD (chronic obstructive pulmonary disease) Diabetes Hypertension Heart disease Myocardial infarction Mother Alcohol abuse Aunt Myocardial infarction no significant family history Surgical History H/O: hysterectomy History of tubal ligation History of vaginal delivery Social History Smoking Status: Never smoker Electronic Cigarette Use: with nicotine alcohol intake: current alcohol intake frequency: holidays/special occasions only substance use type: does not use what type of physical activity do you participate in: running ROS ROS ED ROS Narrative Abdominal pain. Mild nausea. Review of Systems ROS Unobtainable: Denies due to encephalopathy Constitutional Constitutional ED: Denies chills or fever(s) ENT ENT ED: Denies ear pain Cardiovascular Cardiovascular: Denies chest pain Respiratory/Chest Respiratory/Chest: Denies cough or dyspnea Gastrointestinal Gastrointestinal: Reports abdominal pain and nausea; Denies constipation, diarrhea, melena or vomiting Genitourinary Genitourinary ED: Denies dysuria or hematuria Musculoskeletal Musculoskeletal: Denies arthralgias Integumentary Denies abscess Neurologic Neurologic: Denies headache(s) Psychiatric Psychiatric: Denies anxiety Endocrine Endocrinology: Denies polydipsia Hematologic/Lymphatic Hematologic/Lymphatic: Denies easy bleeding Allergic/Immunologic Allergic/Immunologic ED: Denies mouth swelling or tongue swelling EXAM Physical Exam Narrative Exam Narrative: 26-year-old female no acute distress. Vital signs are stable afebrile. H EENT exam unremarkable. Moist extremities. Neck nontender no lymphadenopathy. Lungs clear to auscultation bilaterally. Heart regular rhythm rate about 80 no murmur. Abdomen soft nondistended normal bowel sounds no peritoneal signs. Right upper, left upper and left lower quadrant completely nontender. Minimal tenderness in the right lower quadrant. No true McBurney's point tenderness. No hernia or mass. No distention or signs of trauma. Moving all 4 extremities. Back nontender. Neurologically she is awake and alert. Benign exam. Minimal right lower quadrant tenderness. Const Vital Signs: 05/09/22 04:49 05/09/22 04:49 05/09/22 06:49 Temperature 98.5 F Temperature Source Temporal Pulse Rate 78 Respiratory Rate 14 18 Blood Pressure 129/82 H Blood Pressure Mean 97 Pulse Ox 99 98 Oxygen Delivery Method Room Air Room Air Positive well nourished and well developed; Negative for obese, cachectic, contractures or unkempt General Appearance ED: well developed and NAD; Negative for unkempt, cachectic, contractures, pallor or other Nutritional Appearance: Negative for cachectic or obese HEENT Reports moist mucous membranes normocephalic and atraumatic; Negative for trauma or tenderness Eyes PERRL and EOMs intact bilaterally General Eye ED: Negative for pale conjunctiva or scleral icterus Neck no lymphadenopathy, supple and no JVD General: Negative for tenderness Carotids: Negative for other Lymph Lymphatic: Negative for other Resp normal respiratory effort Effort and Inspection: Negative for respiratory distress Auscultation: Negative for rales, rhonchi or wheezes Cardio regular rate, regular rhythm, S1 normal heart sound, S2 normal heart sound and no murmurs Rate: Negative for bradycardia or tachycardic Rhythm: Negative for abnormal rhythm GI non-distended and no masses; Negative for non-tender GI Narrative: Minimal right lower quadrant tenderness. No hernia or mass. Inspection: Negative for abdominal distention Auscultation: normoactive bowel sounds Palpation: soft and tender; Negative for guarding, rigid, hepatomegaly, splenomegaly, hernia, mass, pulsatile mass or rebound tenderness present Back/Spine no CVA tenderness General Back: Negative for CVA tenderness Cervical Spine: Negative for cervical spine tenderness Thoracic Spine / Upper Back: Negative for thoracic spinal tenderness Lumbar Spine / Lower Back: Negative for lumbar spinal tenderness Coccyx: Negative for other Extremity full ROM General Extremety ED: Negative for edema or tenderness General Extremity: Negative for edema Neuro CN's II-XII intact bilaterally, moves all extremities and no sensory deficits noted Sensorium / Orientation: alert, oriented to person, oriented to place and oriented to time; Negative for orientation impaired, confused, lethargic or stuporous Sensory Exam: No sensory level loss detected Motor Exam: strength 5/5 throughout; Negative for general weakness Psych mental status grossly normal and thought process normal Appearance: Negative for unkempt Attitude: No agitated Mood & Affect: Negative for depressed, anxious or tearful Skin no wounds General Skin Exam: Negative for jaundice or pallor Lesions: no lesions Rashes: no rashes Trauma: Negative for abrasion Nails: Negative for discolored MDM MDM MDM Narrative Medical decision making narrative: 26-year-old with chronic right lower quadrant abdominal pain since she had a hysterectomy surgery 2 years ago. Believes her right ovary was left in place. Said worse pain over the last week. Clinically I highly doubt this is appendicitis but she does have right lower quadrant abdominal pain. I do not think it is a UTI. This could be scar tissue or adhesions. I do not see or feel a hernia at this time. CAT scan and labs being obtained. Repeat exam patient doing well at 9:10 AM. We went over all of her test results. She will be discharged home with outpatient follow-up. Chronic right lower quadrant abdominal pain of uncertain etiology. She requested some Motrin for pain and she did not want any narcotics or any stronger pain medication. History & Record Review Discussion w/independent historian: Patient Lab Data Attestation: I reviewed the patient's lab results. Lab results narrative: CBC normal. White count 8.3. H&H 12.7 and 39. Electrolytes are unremarkable gap of 5 normal BUN 10 creatinine 0.85. Liver enzymes are normal. Urinalysis is negative occult blood. No white cells. No nitrates. No bacteria. CAT scan shows no acute abnormality. Incidental finding of a stone in the right kidney. Labs: Laboratory Results - last 24 hr 05/09/22 05/09/22 05/09/22 05:00 05:00 06:15 WBC 8.3 RBC 4.36 Hgb 12.7 Hct 39.6 MCV 90.8 MCH 29.1 MCHC 32.1 RDW Std Deviation 45.9 H RDW Coeff of Mary 13.6 Plt Count 276 MPV 10.5 Immature Gran % (Auto) 0.400 Neut % (Auto) 56.7 Lymph % (Auto) 34.7 [place] % (Auto) 6.8 Eos % (Auto) 1.0 Baso % (Auto) 0.4 Absolute Neuts (auto) 4.7 Absolute Lymphs (auto) 2.89 Nucleated RBC % 0 Sodium 137 Potassium 3.5 Chloride 107 Carbon Dioxide 25.0 Anion Gap 5 BUN 10 Creatinine 0.85 Estim Creat Clear Calc 89.46 Est GFR (MDRD) Af Amer 103 Est GFR (MDRD) Non-Af 85 BUN/Creatinine Ratio 11.8 Glucose 97 Calcium 8.8 Total Bilirubin 0.30 AST 12 L ALT 17 Alkaline Phosphatase 43 L Total Protein 7.9 Albumin 3.9 Globulin 4.0 Albumin/Globulin Ratio 1.0 Urine Color Yellow Urine Clarity Clear Urine pH 6.5 Ur Specific [place] 1.015 Urine Protein 15 H Urine Glucose (UA) Normal Urine Ketones Negative Urine Occult Blood 50 H Urine Nitrite Negative Urine Bilirubin Negative Urine Urobilinogen Normal Ur Leukocyte Esterase 25 H Urine RBC 0-5 SEEN Urine WBC 0-5 SEEN Ur Squamous Epith Cells 0-5 SEEN Urine Bacteria 0 SEEN Urine Mucus 0 SEEN Radiography Diagnostic Testing: Clinical Impression(s) from Imaging Studies Abdomen/Pelvis CT 05/09/22 05:30 IMPRESSION: 1. No acute abnormalities identified in the abdomen/pelvis. 2. Tiny nonobstructing stone in the right kidney. No ureteral stone or renal obstruction. Electronically Signed: Carlo Medina MD at 6:35 EDT , Discharge Plan Triage Chief Complaint: Abd Pain ED Provider: Benjamín Bradford Dx/Rx/DC Orders Clinical Impression: Abdominal pain Instructions: Abdominal Pain Prescriptions: No Action acyclovir 400 mg tablet 400 mg PO BID PRN Primary Care Provider: Franchesca Fournier Referrals: Franchesca Fournier MD [Primary Care Provider] - 1 Week if not improving Activity Restrictions/Additional Instructions: Your labs, urinalysis and CAT scan were all unremarkable. This does not mean you are not having pain and just means there is nothing specifically we can find causing your pain. It may be secondary to scar tissue from your prior hysterectomy. Tylenol and Motrin for pain. Follow-up with your primary care physician if not improving Disposition Disposition: Home, Self Care
[2022-05-09 05:48] LABS: Absolute Lymphocyte Count 2.89 X10^3/uL (0.83-4.51); Absolute Neutrophil Count 4.7 X10^3/uL (2.0-7.7); Basophil# 0.03 X10^3/uL; Basophil% 0.4 % (0-1); Eosinophil# 0.08 X10^3/uL; Hematocrit 39.6 % (37-47); Hemoglobin 12.7 g/dL (12.0-15.0); Lymphocyte # 2.89 X10^3/ul (0.83-4.51); Lymphocyte % 34.7 % (19-41); Mean Corp Hgb Conc 32.1 g/dL (32-36); Mean Corpuscular Hgb 29.1 pg (27.0-32.0); Mean Corpuscular Volume 90.8 fL (81-99); Mean Platelet Vol. 10.5 fl (6.2-12.0); Monocyte# 0.57 X10^3/uL; Monocyte% 6.8 % (0-10); NRBC Flagged by Analyzer 0 % (0-5); Neutrophil # 4.74 X10^3/uL (2.7-7.7); Neutrophil % 56.7 % (47-70); Platelet Count 276 K/mm3 (150-450); RBC Distribution Width CV 13.6 % (11.6-14.6); RBC Distribution Width SD 45.9 fl (35.1-43.9); Red Blood Count 4.36 M/mm3 (4.2-5.4); White Blood Count 8.3 K/mm3 (4.4-11.0)
[2022-05-09 06:10] LABS: AST(SGOT) 12 U/L (15-37); Alanine Aminotransfer ALT/SGPT 17 U/L (13-56); Albumin, Serum 3.9 g/dL (3.2-5.0); Alkaline Phosphatase 43 U/L (45-117); Anion Gap 5 (5-15); BUN 10 mg/dL (7-18); BUN/Creat Ratio 11.8 RATIO (10-20); Calcium,Total 8.8 mg/dL (8.5-10.1); Chloride 107 mmol/L (98-107); Creatinine, Serum 0.85 mg/dL (0.55-1.02); EST Glomerular Filtration Rate 85 mL/min (>60); Est Glom Filt Rate - Afr Amer 103 mL/min (>60); Estimated Creatinine Clearance 89.46 ml/min; Glucose 97 mg/dL (74-106); Potassium 3.5 mmol/L (3.5-5.1); Protein, Total 7.9 g/dL (6.4-8.2); Sodium Level 137 mmol/L (136-145)
[2022-05-09 06:28] LABS: Bacteria 0 SEEN /hpf (None Seen); Mucous, Urine 0 SEEN /hpf (<or=2+)
[2022-05-09 06:31] LABS: Glucose, Dipstick Normal (Normal); Ketone-Dipstick Negative (Negative); Leukocyte Esterase-Dipstick 25 /ul (Negative); Nitrite-Dipstick Negative (Negative); Occult Blood-Urine 50 /ul (Negative); Protein-Dipstick 15 mg/dl (Negative); Specific Gravity, Urine 1.015 (1.002-1.030); Urine Bilirubin Dipstick Negative (Negative); Urine Urobilinogen Normal (Normal); Urine pH 6.5 (5.0 - 8.0)
[2022-05-09 06:34] LABS: Color, Urine Yellow (Yellow); Urine Clarity Clear (Clear)
[2022-05-09 06:49] VITALS: RESP 18
[2022-05-09 06:59] LABS: Red Blood Cells-Urine 0-5 SEEN /hpf (0-5); Squamous Epithelial Cells - UA 0-5 SEEN /hpf (5-10); White Blood Cells 0-5 SEEN /hpf (0-5)
[2022-05-09 08:00] VITALS: RESP 18
[2022-05-09] MEDS: Ibuprofen 600 MG Tablet PO (09:43)
== END 2022-05-09 09:49 | disposition home or self-care (01) ==
PROVIDERS: Emergency Provider Emergency Medicine; PCP Internal Medicine; Visit Provider Emergency Medicine
DX: R10.31 Right lower quadrant pain (principal); F17.290 Nicotine dependence, other tobacco product, uncomplicated
CPT/HCPCS: 74177; 80053; 81001; 85025; 99283; Q9967

== ENCOUNTER → 2022-06-27 | Outpatient (CLI) | payer MEDICAID, SELFPAY ==
--- NOTE | 2022-06-27 12:12 | ECHOD_ITS ---
Reason For Study: Chest Pain Procedure This was a 2D Doppler, Color Flow transthoracic echocardiogram. Exam performed in department. Left Ventricle Normal LV size. Left ventricular systolic function is normal. The estimated ejection fraction is 55 %. Normal diastology for age. No regional wall motion abnormalities noted. Right Ventricle Normal RV size. Normal systolic function. Atria Normal left atrium. Normal right atrium. Mitral Valve Normal mitral valve. Tricuspid Valve Normal tricuspid valve. Aortic Valve Trisinus/trileaflet aortic valve. Pulmonic Valve Normal pulmonic valve. Great Vessels Normal aortic root. The pulmonary artery is normal size. Normal inferior vena cava. Pericardium/Pleural No pericardial effusion. MMode/2D Measurements & Calculations LVIDd: 4.2 cm IVSd: 0.88 cm LA dimension: 2.9 cm LVIDs: 2.9 cm LVPWd: 0.80 cm RVDd: 3.9 cm FS: 30.9 % LAV(MOD-bp): 35.2 ml LVAd ap4: 28.3 cm2 SV(MOD-sp4): 46.2 ml LAV(MOD-bp) Indexed: 21.3 ml/m2 LVLd ap4: 7.7 cm LAV(MOD-sp2): 34.3 ml EDV(MOD-sp4): 83.7 ml LAV(MOD-sp4): 30.5 ml EDV(sp4-el): 88.2 ml LVAs ap4: 17.1 cm2 LVLs ap4: 6.2 cm ESV(MOD-sp4): 37.5 ml ESV(sp4-el): 40.1 ml EF(MOD-sp4): 55.2 % EF(sp4-el): 54.6 % SV(sp4-el): 48.1 ml LA A4 area: 13.9 cm2 RA A4 area: 9.7 cm2 Time Measurements MV dec time: 0.16 sec Doppler Measurements & Calculations MV E max jerrod: 77.6 cm/sec Lat Peak E' Jerrod: 18.8 cm/sec Med Peak E' Jerrod: 15.3 cm/sec MV A max jerrod: 51.2 cm/sec E/E' lat: 4.1 E/E' med: 5.1 MV E/A: 1.5 MV V2 max: 117.3 cm/sec MV P1/2t max jerrod: 117.3 cm/sec Ao V2 max: 137.7 cm/sec MV max P.5 mmHg MV P1/2t: 64.3 msec Ao max P.6 mmHg MV V2 mean: 51.1 cm/sec Ao V2 mean: 98.3 cm/sec MV mean P.3 mmHg MV dec slope: 534.5 cm/sec2 Ao mean P.4 mmHg MV V2 VTI: 23.4 cm MVA(P1/2t): 3.4 cm2 Ao V2 VTI: 27.5 cm AV (velocity ratio): 0.72 LV V1 max: 89.3 cm/sec PA V2 max: 83.2 cm/sec LV V1 max P.2 mmHg PA V2 mean: 62.6 cm/sec LV V1 mean P.7 mmHg LV V1 mean: 61.0 cm/sec LV V1 VTI: 19.8 cm ECHO/Echo Complete Interpretation Summary Normal LV size. Left ventricular systolic function is normal. The estimated ejection fraction is 55 %. Normal diastology for age. Trisinus/trileaflet aortic valve. Ordering Physician: Mayelin Tay Referring Physician: Franchesca Fournier M.D. Performed By: Renaldo Hinojosa RCS
--- NOTE | 2022-06-27 17:52 | STRESSREP_ITS ---
Stress Test Report Exercise myocardial perfusion stress test. 26-year-old lady with a history of chest pain Stress protocol: Resting EKG demonstrates normal sinus rhythm with rate of 93 bpm resting blood pressure is 120/82 mmHg. The patient exercised according to the regular Mando protocol for a total duration of 7 minutes and 45 seconds attaining a maximum heart rate of 181 bpm which was 93% of maximum predicted heart rate; the maximum workload was 10.1 metabolic equivalents. At rest there were no ST or T wave changes noted to suggest ischemia and at peak exercise upsloping ST changes only were noted which did not meet the criteria for ischemia. No clinical angina was noted the test was terminated due to the target heart rate being achieved/fatigu e. The peak blood pressure was 130/70 mmHg. Rate-pressure product was 18,400. Conclusion: Exercise stress test with no EKG criteria for ischemia or chest pain at a high workload
== END | disposition home or self-care (01) ==
LOC: CVS 12:11
PROVIDERS: PCP Internal Medicine; Referring Provider Nurse Practitioner Gerontology; Visit Provider Nurse Practitioner Gerontology
DX: R01.1 Cardiac murmur, unspecified (principal); Q23.1 Congenital insufficiency of aortic valve; R07.9 Chest pain, unspecified
CPT/HCPCS: 93017; 93306

== ENCOUNTER 2023-08-16 00:55 | Emergency (ER) | payer MEDICAID, SELFPAY ==
[2023-08-16 00:56] VITALS: BP 142/93; PULSE 82; RESP 12; TEMP 37; O2SAT 99
--- NOTE | 2023-08-16 02:35 | EDS_ITS ---
HPI History of Present Illness Chief Complaint: Anxiety Informant: patient and spouse/S.O. Narrative Narrative: Patient is a 27-year-old female with past medical history of anxiety and depression. She states that there has been a bunch of family issues recently and she states this is been increasing her anxiety. She reports this evening after watching TV with her significant other that she was trying to lay down and go to bed and she felt like her heart was racing and she noticed some chest discomfort and shortness of breath associated with this. Patient denies any recent surgery travel or history of DVT/PE. She denies any hormone use. She denies any family history of cardiac disease at a young age. She states that because of the persistent symptoms and need to ensure that she was not having a heart attack she presents for evaluation [facility] Medical History (Updated 08/16/23 @ 02:[address] Killian River, DO) Herpes Encounter for wellness examination in adult Mood disorder Anxiety and depression Tachycardia Chest pain Anemia Heart murmur Request for sterilization Ovarian cyst Home Medications ?Medication ?Instructions ?Recorded ?Last Taken ?Type acyclovir 400 mg tablet 400 mg PO BID PRN Herpetic 07/27/23 Unknown Rx exacerbation 7 days #14 tabs loratadine 10 mg tablet 10 mg PO DAILY PRN allergies 08/16/23 Unknown History Allergy/AdvReac Type Severity Reaction Status Date / Time No Known Allergies Allergy Verified 08/16/23 01:01 Family History Father Hypertension Diabetes Myocardial infarction, Onset Age: 50 Heart disease Grandmother COPD (chronic obstructive pulmonary disease) Diabetes Hypertension Heart disease Myocardial infarction Mother Alcohol abuse Aunt Myocardial infarction Surgical History History of vaginal delivery History of tubal ligation H/O: hysterectomy Social History Smoking Status: Current every day smoker tobacco type: e-cigarettes Electronic Cigarette Use: with nicotine alcohol intake: current alcohol intake frequency: holidays/special occasions only substance use type: does not use what type of physical activity do you participate in: running ROS ROS ED Constitutional Constitutional ED: Denies chills or fever(s) Eyes Eyes: Denies change in vision ENT ENT ED: Denies sore throat Cardiovascular Cardiovascular: Reports chest pain and racing heartbeat Respiratory/Chest Respiratory/Chest: Reports dyspnea; Denies cough Gastrointestinal Gastrointestinal: Denies abdominal pain, diarrhea, nausea or vomiting Genitourinary Genitourinary ED: Denies dysuria Musculoskeletal Musculoskeletal: Denies myalgias Integumentary Denies rash Neurologic Neurologic: Denies headache(s) Psychiatric Psychiatric: Reports anxiety and depression; Denies suicidal ideation or suicidal thoughts Hematologic/Lymphatic Hematologic/Lymphatic: Denies easy bleeding or easy bruising EXAM Physical Exam Const Vital Signs: 08/16/23 00:56 08/16/23 02:56 Temperature 98.6 F 98.1 F Temperature Source Oral Pulse Rate 82 70 Respiratory Rate 12 16 Blood Pressure 142/93 H 131/98 H Blood Pressure Mean 109 109 Pulse Ox 99 100 Oxygen Delivery Method Room Air Positive well nourished and well developed General Appearance ED: well developed; Negative for pallor HEENT HEENT Narrative: Normocephalic atraumatic Eyes PERRL and EOMs intact bilaterally General Eye ED: Negative for pale conjunctiva or scleral icterus Neck supple Chest Wall palpation of chest normal Chest Narrative: No bony deformity or crepitance noted Resp normal respiratory effort and clear to auscultation bilaterally Resp Narrative: No nasal flaring retractions tachypnea or accessory muscle use Patient is able to speak in full sentences without dyspnea Cardio regular rate and regular rhythm Rate: other Other Details: Heart is regular rate and rhythm without murmurs rubs or gallop Radial and carotid pulses are equal and symmetric Extremity normal to inspection Extremity Narrative: No asymmetric edema no pitting edema negative Homans' sign bilaterally Neuro oriented x3, CN's II-XII intact bilaterally and no sensory deficits noted Sensorium / Orientation: alert Motor Exam: strength 5/5 throughout Psych Psych Narrative: Patient has a nervous/anxious affect Skin no rashes or lesions noted General Skin Exam: Negative for jaundice or pallor MDM MDM MDM Narrative Medical decision making narrative: Patient presented to the ER hypertensive but otherwise with stable vitals. She is low risk for cardiovascular disease. History and exam is most consistent with anxiety. However I discussed with the patient the potential to perform basic laboratory studies including a troponin to assess for acute blood loss anemia acute kidney injury thyroid disorder electrolyte disturbance or acute coronary syndrome as a cause of her symptoms. I also recommended a chest x-ray to make sure there is no lung pathology to be the cause of her shortness of breath. The patient states that as her vitals are stable and my exam indicates this is most likely anxiety and not anything further and she does not want these test performed. An EKG was obtained which shows no signs of cardiac arrhythmia and no signs of ischemia indicating that the patient's symptoms are related to anxiety and not an underlying nefarious process. Therefore at this time as EKG is sinus rhythm without ischemic changes patient's vitals are overall stable and she does not want further testing to be discharged home History & Record Review Discussion w/independent historian: Patient and Significant other Discharge Plan Triage Chief Complaint: Anxiety ED Provider: Killian River Dx/Rx/DC Orders Clinical Impression: Anxiety, Acute nonspecific chest pain with low risk of coronary artery disease Instructions: ED Chest Pain, Uncertain Cause, ED Panic Attack Prescriptions: No Action acyclovir 400 mg tablet 400 mg PO BID PRN (Reason: Herpetic exacerbation) 7 Days Qty: 14 5RF loratadine 10 mg tablet 10 mg PO DAILY PRN (Reason: allergies ) Stand Alone Forms: ED Work / School Excuse Primary Care Provider: Franchesca Fournier Referrals: Franchesca Fournier MD [Primary Care Provider] - Print Language: Dominican Disposition Disposition: Home, Self Care Discharge Date/Time: 08/16/23 02:57
[2023-08-16 02:56] VITALS: BP 131/98; PULSE 70; RESP 16; TEMP 36.7; O2SAT 100
== END 2023-08-16 02:57 | disposition home or self-care (01) ==
PROVIDERS: Emergency Provider Emergency Medicine; PCP Internal Medicine; Visit Provider Emergency Medicine
DX: F41.9 Anxiety disorder, unspecified (principal); R07.89 Other chest pain; R06.02 Shortness of breath; F17.290 Nicotine dependence, other tobacco product, uncomplicated; Z79.899 Other long term (current) drug therapy
CPT/HCPCS: 93005; 99282

== ENCOUNTER 2023-09-18 15:57 | Emergency (ER) | payer MEDICAID, SELFPAY ==
[2023-09-18 15:57] VITALS: BP 145/93; PULSE 106; RESP 15; TEMP 36.6; O2SAT 98
[2023-09-18 16:56] LABS: Absolute Lymphocyte Count 1.21 X10^3/uL (0.83-4.51); Absolute Neutrophil Count 7.4 X10^3/uL (2.0-7.7); Basophil# 0.03 X10^3/uL; Basophil% 0.3 % (0-1); Eosinophil# 0.02 X10^3/uL; Eosinophils% 0.2 % (0-5); Hematocrit 41.7 % (37-47); Hemoglobin 13.7 g/dL (12.0-15.0); Lymphocyte # 1.21 X10^3/ul (0.83-4.51); Lymphocyte % 13.3 % (19-41); Mean Corp Hgb Conc 32.9 g/dL (32-36); Mean Corpuscular Volume 88.2 fL (81-99); Mean Platelet Vol. 10.2 fl (6.2-12.0); Monocyte% 4.4 % (0-10); NRBC Flagged by Analyzer 0 % (0-5); Neutrophil % 81.5 % (47-70); Platelet Count 261 K/mm3 (150-450); RBC Distribution Width SD 41.9 fl (35.1-43.9); Red Blood Count 4.73 M/mm3 (4.2-5.4); White Blood Count 9.1 K/mm3 (4.4-11.0)
[2023-09-18 17:10] LABS: Internal QC Validated? YES +Cl - CLEAR BKGD; Pregnancy, Serum, hCG Quali. NEGATIVE Negative
[2023-09-18 17:16] LABS: ALB/GLOB Ratio 0.9 RATIO (0.9-2.4); AST(SGOT) 15 U/L (15-37); Alanine Aminotransfer ALT/SGPT 15 U/L (13-56); Alkaline Phosphatase 43 U/L (45-117); Anion Gap 8 (5-15); BUN 7 mg/dL (7-18); Calcium,Total 9.4 mg/dL (8.5-10.1); Chloride 105 mmol/L (98-107); Creatinine, Serum 0.78 mg/dL (0.55-1.02); EST Glomerular Filtration Rate 93 mL/min (>60); Est Glom Filt Rate - Afr Amer 112 mL/min (>60); Estimated Creatinine Clearance 91.45 ml/min; Globulin 4.3 g/dL (2.2-4.2); Glucose 117 mg/dL (74-106); Potassium 3.8 mmol/L (3.5-5.1); Protein, Total 8.3 g/dL (6.4-8.2); Sodium Level 140 mmol/L (136-145)
--- NOTE | 2023-09-18 17:32 | EDS_ITS ---
HPI HPI - GI History of Present Illness Chief Complaint: Abd Pain Abdominal Pain/Flank Pain Onset: Today Context: Sudden Onset Timing: Continuous Quality: Sharp and Stabbing Location: Epigastric, RUQ and RLQ Worsened by: - (Standing up) Relieved by: Antacids and - (Flexion) Nausea/Vomiting/Emesis GI Symptom: Positive for Nausea and Vomiting Onset: Today Quality: Positive for Nonbilious; Negative for Blood streaks, Coffee ground or Hematemesis Diarrhea/Melena/Hematochezia GI Symptom: Negative for Diarrhea, Melena or Hematochezia Associated Symptoms Associated Symptoms: Positive for Frequency; Negative for Dysuria or Hematuria Narrative Narrative: Patient presents with abdominal pain that began today. Patient describes it as sharp and stabbing. Patient states it is mainly on the right side of her abdomen. Patient states it also goes into the epigastric area. Patient states it is worse when she stands straight up. Patient states it is better when she flexes forward. Patient states she took some Tums which also seem to help. Patient states she has been having some nausea and vomiting. Patient states her emesis is mainly stomach contents. Patient denies any hematemesis or coffee- ground emesis. Patient denies any diarrhea, melena, or hematochezia. Patient admits to some urinary frequency but denies any dysuria or hematuria. PFSH [facility] Medical History Herpes Encounter for wellness examination in adult Mood disorder Anxiety and depression Tachycardia Chest pain Anemia Heart murmur Request for sterilization Ovarian cyst Home Medications ?Medication ?Instructions ?Recorded ?Last Taken ?Type acyclovir 400 mg tablet 400 mg PO BID PRN Herpetic 07/27/23 Unknown Rx exacerbation 7 days #14 tabs loratadine 10 mg tablet 10 mg PO DAILY PRN allergies 08/16/23 Unknown History ondansetron 4 mg disintegrating 4 mg PO Q8H PRN PRN Nausea #10 tabs 09/18/23 Unknown Rx tablet Allergy/AdvReac Type Severity Reaction Status Date / Time No Known Allergies Allergy Verified 09/18/23 15:57 Family History Father Hypertension Diabetes Myocardial infarction, Onset Age: 50 Heart disease Grandmother COPD (chronic obstructive pulmonary disease) Diabetes Hypertension Heart disease Myocardial infarction Mother Alcohol abuse Aunt Myocardial infarction Surgical History History of vaginal delivery History of tubal ligation H/O: hysterectomy Social History (Updated 09/18/23 @ 18:[address] Abhinav Dwyer DO) Smoking Status: Current every day smoker tobacco type: e-cigarettes Electronic Cigarette Use: with nicotine alcohol intake: current alcohol intake frequency: holidays/special occasions only substance use type: marijuana what type of physical activity do you participate in: running ROS ROS ED Constitutional Constitutional ED: Denies chills or fever(s) Eyes Eyes: Denies blurry vision or change in vision ENT ENT ED: Denies rhinorrhea or sore throat Cardiovascular Cardiovascular: Denies chest pain or palpitations Respiratory/Chest Respiratory/Chest: Reports dyspnea; Denies cough Gastrointestinal Gastrointestinal: Reports abdominal pain, nausea and vomiting; Denies diarrhea or melena Genitourinary Genitourinary ED: Reports urinary frequency; Denies dysuria or hematuria Musculoskeletal Musculoskeletal: Reports back pain; Denies neck pain Integumentary Denies abscess or rash Neurologic Neurologic: Denies headache(s) or weakness Allergic/Immunologic Allergic/Immunologic ED: Denies mouth swelling or urticaria EXAM Physical Exam Const Vital Signs: 09/18/23 15:57 09/18/23 17:55 09/18/23 19:00 Temperature 97.8 F Temperature Source Temporal Pulse Rate 106 H 68 84 Respiratory Rate 15 16 16 Blood Pressure 145/93 H 134/83 H 144/96 H Blood Pressure Mean 110 100 112 Pulse Ox 98 100 100 Oxygen Delivery Method Room Air Room Air Room Air 09/18/23 20:02 Temperature 97.2 F L Temperature Source Pulse Rate 91 Respiratory Rate 19 H Blood Pressure 124/75 H Blood Pressure Mean 91 Pulse Ox 100 Oxygen Delivery Method Positive well nourished and well developed General Appearance ED: well developed and NAD HEENT Reports moist mucous membranes Neck supple and no JVD Resp normal respiratory effort and clear to auscultation bilaterally Cardio regular rate and regular rhythm GI non-distended Palpation: soft and tender epigastric, LLQ, RLQ, RUQ, periumbilical and suprapubic; Negative for guarding or rebound tenderness present Neuro CN's II-XII intact bilaterally, moves all extremities and no sensory deficits noted Sensorium / Orientation: alert Motor Exam: strength 5/5 throughout Psych mental status grossly normal and thought process normal MDM MDM MDM Narrative Medical decision making narrative: Differential diagnosis includes gastritis, viral illness, pancreatitis, cholecystitis, cholelithiasis, appendicitis, urinary tract infection, ureteral calculus, pyelonephritis, bowel obstruction, and perforation. CT scan of the abdomen pelvis will be obtained to assess for appendicitis, cholecystitis, pancreatitis, ureteral calculus, bowel obstruction, and perforation. CBC will be obtained to assess for leukocytosis and anemia. Comprehensive metabolic profile will be obtained to assess for hepatic function, renal function, and electrolyte abnormality. Urinalysis will be obtained to assess for urinary tract infection and hematuria. Nursing protocol orders were placed and a serum hCG was obtained to assess for . Lab Data Attestation: I reviewed the patient's lab results. Lab results narrative: Was reviewed and was within normal limits. Comprehensive metabolic profile was reviewed and was within normal limits. Serum hCG was reviewed and was negative. Urinalysis was reviewed. There is no evidence of urinary tract infection or hematuria. Labs: Laboratory Results - last 24 hr 09/18/23 09/18/23 16:44 17:29 WBC 9.1 RBC 4.73 Hgb 13.7 Hct 41.7 MCV 88.2 MCH 29.0 MCHC 32.9 RDW Std Deviation 41.9 RDW Coeff of Mary 13.0 Plt Count 261 MPV 10.2 Immature Gran % (Auto) 0.300 Neut % (Auto) 81.5 H Lymph % (Auto) 13.3 L [place] % (Auto) 4.4 Eos % (Auto) 0.2 Baso % (Auto) 0.3 Absolute Neuts (auto) 7.4 Absolute Lymphs (auto) 1.21 Nucleated RBC % 0 Sodium 140 Potassium 3.8 Chloride 105 Carbon Dioxide 27.0 Anion Gap 8 BUN 7 Creatinine 0.78 Estim Creat Clear Calc 91.45 Est GFR (MDRD) Af Amer 112 Est GFR (MDRD) Non-Af 93 BUN/Creatinine Ratio 9.0 L Glucose 117 H Calcium 9.4 Total Bilirubin 0.50 AST 15 ALT 15 Alkaline Phosphatase 43 L Total Protein 8.3 H Albumin 4.0 Globulin 4.3 H Albumin/Globulin Ratio 0.9 Serum , Qual NEGATIVE Urine Color Straw Urine Clarity Clear Urine pH 6.5 Ur Specific [place] 1.010 Urine Protein Negative Urine Glucose (UA) Normal Urine Ketones 15 H Urine Occult Blood 25 H Urine Nitrite Negative Urine Bilirubin Negative Urine Urobilinogen Normal Ur Leukocyte Esterase Negative Urine RBC 0 SEEN Urine WBC 0 SEEN Ur Squamous Epith Cells 0 SEEN Urine Bacteria 0 SEEN Urine Mucus 0 SEEN Radiography Diagnostic Testing: Clinical Impression(s) from Imaging Studies Abdomen/Pelvis CT 09/18/23 18:06 IMPRESSION: Negative CT of the abdomen and pelvis with intravenous contrast. Electronically Signed: Francesco Keane MD at 19:14 EDT , CT scan of the abdomen and pelvis was obtained. There is no acute process noted. There is no evidence of bowel obstruction or perforation. There is no evidence of appendicitis. There is no free air or free fluid. This was interpreted by the radiologist and was also independently reviewed by myself. Treatment and Re-Evaluation :: Nicotine cessation was discussed. Marijuana cessation was discussed. Patient was given IV fluids, morphine, and Zofran. Patient was feeling better on reevaluation. Patient was advised of her findings. Patient was given a note for work for today. Patient was instructed to follow-up with her primary care physician in 5 to 7 days. Patient was given a prescription for Zofran. Patient was instructed to drink plenty of fluids. Patient was instructed return if worse in any way. Patient understood and was agreeable with the plan. All questions were answered. Discharge Plan Triage Chief Complaint: Abd Pain ED Provider: Abhinav Dwyer Dx/Rx/DC Orders Clinical Impression: Abdominal pain, Nicotine vapor product user Instructions: ED Abdominal Pain Unkn Cause Fem Prescriptions: New ondansetron 4 mg tablet,disintegrating 4 mg PO Q8H PRN PRN (Reason: Nausea) Qty: 10 0RF No Action acyclovir 400 mg tablet 400 mg PO BID PRN (Reason: Herpetic exacerbation) 7 Days Qty: 14 5RF loratadine 10 mg tablet 10 mg PO DAILY PRN (Reason: allergies ) Stand Alone Forms: ED Work / School Excuse Primary Care Provider: Franchesca Fournier Referrals: Franchesca Fournier MD [Primary Care Provider] - 3-5 Days Print Language: Mongolian Disposition Disposition: Home, Self Care Discharge Date/Time: 09/18/23 20:07
[2023-09-18 17:47] LABS: Bacteria 0 SEEN /hpf (None Seen); Mucous, Urine 0 SEEN /hpf (<or=2+); Red Blood Cells-Urine 0 SEEN /hpf (0-5); Squamous Epithelial Cells - UA 0 SEEN /hpf (5-10); White Blood Cells 0 SEEN /hpf (0-5)
[2023-09-18 17:52] LABS: Color, Urine Straw (Yellow); Glucose, Dipstick Normal (Normal); Ketone-Dipstick 15 mg/dl (Negative); Leukocyte Esterase-Dipstick Negative /ul (Negative); Nitrite-Dipstick Negative (Negative); Occult Blood-Urine 25 /ul (Negative); Protein-Dipstick Negative (Negative); Urine Bilirubin Dipstick Negative (Negative); Urine Clarity Clear (Clear); Urine Urobilinogen Normal (Normal); Urine pH 6.5 (5.0 - 8.0)
[2023-09-18 17:55] VITALS: BP 134/83; PULSE 68; RESP 16; O2SAT 100
--- NOTE | 2023-09-18 18:06 | CT_ITS ---
EXAM: CT ABDOMEN AND PELVIS WITH INTRAVENOUS CONTRAST CLINICAL INDICATION: Abdominal pain TECHNIQUE: Helically acquired images were obtained of the abdomen and pelvis with intravenous contrast. This CT exam was performed using one or more of the following dose reduction techniques: automated exposure control, adjustment of the mA and/or kV according to patient size, and/or use of iterative reconstruction technique. CONTRAST: IV 100mL Isovue-370 COMPARISON: 05/09/2022 FINDINGS: LOWER THORAX: Unremarkable. Lung bases are clear. No cardiomegaly. No significant pericardial effusion. ABDOMEN: LIVER: Unremarkable. Homogeneous. No focal mass. GALLBLADDER AND BILE DUCTS: Unremarkable. No calcified gallstones. No gallbladder distention or wall edema. No intra- or extrahepatic biliary ductal dilation. PANCREAS: Unremarkable. No focal cystic or solid mass. SPLEEN: Unremarkable. Normal size without focal cystic or solid mass. ADRENALS: Unremarkable. No nodules. KIDNEYS AND URETERS: Unremarkable. Normal renal size and position. No hydronephrosis. STOMACH AND BOWEL: Unremarkable. No stomach or bowel distention. No focal inflammatory change. PELVIS: APPENDIX: No evidence of acute appendicitis. BLADDER: Unremarkable. REPRODUCTIVE: Unremarkable as visualized. No mass. ABDOMEN and PELVIS: INTRAPERITONEAL SPACE: Unremarkable. No ascites or other fluid collection. No free air. BONES/JOINTS: Unremarkable. No suspicious lytic or blastic abnormality. SOFT TISSUES: Unremarkable. No discrete abdominal or pelvic wall hernia. VASCULATURE: Unremarkable. Abdominal aorta is non-dilated. LYMPH NODES: Unremarkable. No enlarged lymph nodes. CT/Abdomen/Pelvis W IV Cont ONLY IMPRESSION: Negative CT of the abdomen and pelvis with intravenous contrast. Electronically Signed: Francesco Keane MD at 19:14 EDT ,
[2023-09-18] MEDS: Ondansetron 4 MG/2 ML Vial IV (18:16)
[2023-09-18] MEDS: 0.9% Normal Saline (1000mL) 1,000 ML 1000 ML IV (18:16)
[2023-09-18 19:00] VITALS: BP 144/96; PULSE 84; RESP 16; O2SAT 100
[2023-09-18 20:02] VITALS: BP 124/75; PULSE 91; RESP 19; TEMP 36.2; O2SAT 100
== END 2023-09-18 20:07 | disposition home or self-care (01) ==
PROVIDERS: Emergency Provider Emergency Medicine; PCP Internal Medicine; Visit Provider Emergency Medicine
DX: R10.9 Unspecified abdominal pain (principal); F17.290 Nicotine dependence, other tobacco product, uncomplicated; R11.2 Nausea with vomiting, unspecified; R35.0 Frequency of micturition; R06.00 Dyspnea, unspecified; M54.9 Dorsalgia, unspecified
CPT/HCPCS: 74177; 80053; 81001; 84703; 85025; 96361; 96374; 99283; J7030; A4216; J2405

== ENCOUNTER → 2023-10-20 | Outpatient (CLI) | payer MEDICAID, SELFPAY | END | disposition home or self-care (01) | LOC: LABSPEC 14:49 | PROVIDERS: PCP Internal Medicine; Referring Provider Advanced Practice Midwife; Visit Provider Advanced Practice Midwife | DX: R10.2 Pelvic and perineal pain (principal) | CPT/HCPCS: 87070; 87205 ==

== ENCOUNTER → 2023-10-27 | Outpatient (CLI) | payer MEDICAID, SELFPAY ==
--- NOTE | 2023-10-27 14:38 | US_ITS ---
STUDY: ULTRASOUND TRANSVAGINAL CLINICAL: Female, 28 years old. pelvic pain RIGHT -- S/P HYSTERECTOMY, LT OOPHARECTOMY TECHNIQUE: Transvaginal COMPARISON: None. FINDINGS: Uterus not visualized status post hysterectomy Normal uterine cervix. Normal right ovary, measuring 2.9 x 3.1 x 1.6 cm. There are multiple subcentimeter follicles without a dominant cyst. Left ovary not visualized status post oophorectomy. There is trace of fluid in the pelvis. US/Transvaginal Non- IMPRESSION: Postop change status post RAFAEL LSO. Subcentimeter right ovarian follicles without dominant cyst Trace of fluid within the cul-de-sac possibly due to recent ovulation. Electronically Signed: Gregor Carbone MD at 17:02 EDT ,
== END | disposition home or self-care (01) ==
LOC: US 14:37
PROVIDERS: PCP Internal Medicine; Referring Provider Advanced Practice Midwife; Visit Provider Advanced Practice Midwife
DX: R10.2 Pelvic and perineal pain (principal)
CPT/HCPCS: 76830

== ENCOUNTER 2024-06-22 21:08 | Emergency (ER) | payer MEDICAID, SELFPAY ==
[2024-06-22 21:09] VITALS: BP 132/87; PULSE 84; RESP 18; TEMP 36.3; O2SAT 98; BMI 19.4
--- NOTE | 2024-06-22 21:16 | CT_ITS ---
PROCEDURE: ABDOMEN/PELVIS W IV CONT ONLY 06/22/2024 REASON FOR EXAM: RIGHT SIDE ABD PAIN TECHNIQUE: Abdomen and pelvis CT with intravenous contrast. Coronal and Sagittal reconstruction series were provided. PATIENT PREPARATION: Per protocol ORAL CONTRAST TYPE: None. AMOUNT: mL CONTRAST: Omnipaque 350 VOLUME: 100 mL Not Provided Gauge IV One or more dose reduction techniques were used (e.g., Automated exposure control, adjustment of the mA and/or kV according to patient size, use of iterative reconstruction technique. COMPARISON: CT abdomen and pelvis 09/18/2023 FINDINGS: Lung bases: Unremarkable. Liver: Normal size. No mass. Gallbladder: No ductal dilation. Gallbladder is unremarkable. Spleen: Normal size. Pancreas: Normal size without evidence of mass surrounding inflammation or ductal dilation. Adrenals: Unremarkable. Kidneys: 4 mm right UVJ obstructing calculus with moderate right hydroureteronephrosis. Additional punctate right upper pole calculus and 3 mm left interpolar region nonobstructing calculus. Bladder: Decompressed with a circumferential wall thickening. Reproductive Organs: No pelvic mass. . Bowel: Stomach is unremarkable. No bowel dilation or wall thickening. Moderate colonic stool Appendix: The appendix is not identified. There is no inflammatory process identified in the right lower quadrant to suggest appendicitis. Lymph nodes: Unremarkable. Vasculature: The abdominal aorta and IVC are normal. Peritoneum / Retroperitoneum: No ascites. No pneumoperitoneum. Bones: No acute osseous abnormality. Soft tissue: No acute osseous abnormality. CT/Abdomen/Pelvis W IV Cont ONLY IMPRESSION: 4 mm right UVJ obstructing calculus with moderate right hydroureteronephrosis. Multiple other nonobstructing bilateral calculi. Reading Location: [facility]
--- NOTE | 2024-06-22 21:17 | ED.VIS.GI ---
HPI <Dr. Arturo Cantu DO - Last Filed: 06/22/24 22:39> HPI - GI History of Present Illness Chief Complaint: Abd Pain Informant: patient and friend Narrative Narrative: Presents with worsening right sided abdominal pain around 5 PM. Had some nausea vomiting prior no hematemesis last emesis hour ago. Total 5-10 episodes. No diarrhea. History of bilateral salpingectomy subsequent hysterectomy has been performed. Occasional alcohol. Denies recreational drug use including marijuana. Only ate crackers at 5 PM. Unable to keep things down. No allergies. Having urine frequency. No dysuria. Prior similar symptoms: No PFSH <Dr. Arturo Cantu DO - Last Filed: 06/22/24 22:39> PFSH Medical History Herpes Encounter for wellness examination in adult Mood disorder Anxiety and depression Tachycardia Chest pain Anemia Heart murmur Request for sterilization Ovarian cyst Home Medications ?Medication ?Instructions ?Recorded ?Last Taken ?Type ibuprofen 600 mg tablet 600 mg PO Q8H PRN PRN pain #20 06/22/24 Unknown Rx TABLETS ondansetron 8 mg disintegrating 8 mg PO Q8H PRN nausea and 06/22/24 Unknown Rx tablet vomiting #15 tabs Allergy/AdvReac Type Severity Reaction Status Date / Time No Known Allergies Allergy Verified 06/22/24 21:09 Family History Father Hypertension Diabetes Myocardial infarction, Onset Age: 50 Heart disease Grandmother COPD (chronic obstructive pulmonary disease) Diabetes Hypertension Heart disease Myocardial infarction Mother Alcohol abuse Aunt Myocardial infarction Surgical History History of vaginal delivery History of tubal ligation H/O: hysterectomy Social History adopted: No household members: children housing: apartment number of children: 2 current occupational status: employed current occupation: through [employer] leisure activities: exercise history of recent travel: No sexually active: Yes Smoking Status: Current every day smoker tobacco type: e-cigarettes Electronic Cigarette Use: with nicotine alcohol intake: current alcohol intake frequency: holidays/special occasions only substance use type: marijuana what type of physical activity do you participate in: running additional social history: Currently getting a divorce from Antonio FIERRO <Dr. Arturo Cantu DO - Last Filed: 06/22/24 22:39> ROS ED Constitutional Constitutional ED: Denies chills, fever(s) or sweats ENT ENT ED: Denies sore throat Cardiovascular Cardiovascular: Denies chest pain, leg edema, palpitations or racing heartbeat Respiratory/Chest Respiratory/Chest: Denies cough, dyspnea or dyspnea on exertion Gastrointestinal Gastrointestinal: Reports abdominal pain, nausea and vomiting; Denies diarrhea Genitourinary Genitourinary ED: Reports urinary frequency; Denies dysuria or hematuria Musculoskeletal Musculoskeletal: Denies back pain, extremity pain or neck pain Integumentary Denies rash or wounds Neurologic Neurologic: Denies headache(s), paresthesias or weakness EXAM <Dr. Arturo Cantu, - Last Filed: 06/22/24 22:39> Physical Exam Const Vital Signs: 06/22/24 21:09 06/22/24 23:08 Temperature 97.3 F L Temperature Source Temporal Pulse Rate 84 82 Respiratory Rate 18 16 Blood Pressure 132/87 H 114/78 Blood Pressure Mean 102 90 Pulse Ox 98 99 Oxygen Delivery Method Room Air Room Air Positive well nourished and well developed Constitutional Narrative: Nontoxic uncomfortable. General Appearance ED: well developed HEENT Reports moist mucous membranes normocephalic and atraumatic Eyes General Eye ED: Yes normal appearance of both eyes Neck full ROM Chest Wall Chest: Negative for tenderness Resp normal respiratory effort and normal air movement Effort and Inspection: symmetric chest movement; Negative for respiratory distress Cardio regular rate, regular rhythm and no murmurs Peripheral Pulses: pulses 2+ throughout GI normal to inspection, nondistended, normoactive bowel sounds GI Narrative: Tenderness right side abdomen upper and lower. Palpation: Negative for rebound tenderness present Extremity normal to inspection General Extremety ED: Negative for edema or tenderness General Extremity: Negative for edema Neuro oriented x3 and no sensory deficits noted Sensorium / Orientation: awake and alert Skin no rashes or lesions noted and no wounds <Dr. Tl Young MD - Last Filed: 06/22/24 23:46> Physical Exam Const Vital Signs: 06/22/24 21:09 06/22/24 23:08 Temperature 97.3 F L Temperature Source Temporal Pulse Rate 84 82 Respiratory Rate 18 16 Blood Pressure 132/87 H 114/78 Blood Pressure Mean 102 90 Pulse Ox 98 99 Oxygen Delivery Method Room Air Room Air MDM <Dr. Arturo Cantu, DO - Last Filed: 06/22/24 22:39> MDM MDM Narrative Medical decision making narrative: Interventions / MDM: Differential diagnosis: Abdominal pain, nausea and vomiting Diagnosis considered but do not suspect: N/A My EKG interpretation: N/A Imaging independently reviewed and interpreted by myself: CT abdomen pelvis IV contrast: Pending External documents reviewed: N/A Test considered but not ordered:N/A ED course: Vital stable nontoxic. Right side abdominal pain with vomiting. No distention. IV established for labs. Urine ordered. IV fluids Zofran morphine ordered. CT scan abdomen pelvis IV contrast for further evaluation. 2234: Patient declined the morphine therefore Toradol was given. Labs white count 14.2 lipase and liver enzymes normal. Creatinine 0.86. CT scan results pending. Clinically feeling much better nausea improved at this time. Patient signed out to night physician. Re-evaluation: stable Disposition discussed with patient/family/significant other: Patient Case discussed with consulting clinician: N/A This note was generated with [employer] dictation software. It may contain incorrect words, spelling, and punctuation that were not noted in checking the note before signing. Lab Data Attestation: I reviewed the patient's lab results. Labs: Laboratory Results - last 24 hr 06/22/24 06/22/24 21:23 22:30 WBC 14.2 H RBC 4.34 Hgb 13.0 Hct 38.4 MCV 88.5 MCH 30.0 MCHC 33.9 RDW Std Deviation 42.7 RDW Coeff of Mary 13.2 Plt Count 279 MPV 9.7 Immature Gran % (Auto) 0.400 Neut % (Auto) 86.6 H Lymph % (Auto) 10.3 L [place] % (Auto) 2.4 Eos % (Auto) 0.0 Baso % (Auto) 0.3 Absolute Neuts (auto) 12.3 H Absolute Lymphs (auto) 1.46 Nucleated RBC % 0 Sodium 135 Potassium 3.8 Chloride 100 Carbon Dioxide 23.3 Anion Gap 12 BUN 8 Creatinine 0.86 Estim Creat Clear Calc 82.11 Est GFR (MDRD) Non-Af 93 BUN/Creatinine Ratio 9.7 L Glucose 117 H Calcium 9.8 Total Bilirubin 0.81 Direct Bilirubin 0.32 H AST 24 ALT 13 Alkaline Phosphatase 47 Total Protein 8.4 Albumin 4.7 Globulin 3.6 Lipase 19 Urine Color Straw Urine Clarity Clear Urine pH 8.0 Ur Specific [place] 1.010 Urine Protein 30 H Urine Glucose (UA) Normal Urine Ketones 150 A* Urine Occult Blood 250 H Urine Nitrite Negative Urine Bilirubin Negative Urine Urobilinogen Normal Ur Leukocyte Esterase 25 H Urine RBC 50-100 SEEN Urine WBC 5-10 SEEN Ur Squamous Epith Cells 0-5 SEEN Urine Bacteria RARE Urine Mucus 0 SEEN Radiography Diagnostic Testing: Clinical Impression(s) from Imaging Studies Abdomen/Pelvis CT 06/22/24 21:16 IMPRESSION: 4 mm right UVJ obstructing calculus with moderate right hydroureteronephrosis. Multiple other nonobstructing bilateral calculi. Reading Location: [facility] <Dr. Tl Young MD - Last Filed: 06/22/24 23:46> [facility] Lab Data Labs: Laboratory Results - last 24 hr 06/22/24 06/22/24 21:23 22:30 WBC 14.2 H RBC 4.34 Hgb 13.0 Hct 38.4 MCV 88.5 MCH 30.0 MCHC 33.9 RDW Std Deviation 42.7 RDW Coeff of Mary 13.2 Plt Count 279 MPV 9.7 Immature Gran % (Auto) 0.400 Neut % (Auto) 86.6 H Lymph % (Auto) 10.3 L [place] % (Auto) 2.4 Eos % (Auto) 0.0 Baso % (Auto) 0.3 Absolute Neuts (auto) 12.3 H Absolute Lymphs (auto) 1.46 Nucleated RBC % 0 Sodium 135 Potassium 3.8 Chloride 100 Carbon Dioxide 23.3 Anion Gap 12 BUN 8 Creatinine 0.86 Estim Creat Clear Calc 82.11 Est GFR (MDRD) Non-Af 93 BUN/Creatinine Ratio 9.7 L Glucose 117 H Calcium 9.8 Total Bilirubin 0.81 Direct Bilirubin 0.32 H AST 24 ALT 13 Alkaline Phosphatase 47 Total Protein 8.4 Albumin 4.7 Globulin 3.6 Lipase 19 Urine Color Straw Urine Clarity Clear Urine pH 8.0 Ur Specific [place] 1.010 Urine Protein 30 H Urine Glucose (UA) Normal Urine Ketones 150 A* Urine Occult Blood 250 H Urine Nitrite Negative Urine Bilirubin Negative Urine Urobilinogen Normal Ur Leukocyte Esterase 25 H Urine RBC 50-100 SEEN Urine WBC 5-10 SEEN Ur Squamous Epith Cells 0-5 SEEN Urine Bacteria RARE Urine Mucus 0 SEEN Radiography Diagnostic Testing: Clinical Impression(s) from Imaging Studies Abdomen/Pelvis CT 06/22/24 21:16 IMPRESSION: 4 mm right UVJ obstructing calculus with moderate right hydroureteronephrosis. Multiple other nonobstructing bilateral calculi. [facility] Treatment and Re-Evaluation Comments:: Patient checked out to me pending CT results. I reviewed the images and the report which I agree with. It is consistent with a 4 mm right UVJ stone causing hydroureteronephrosis. I spoke with the patient she is doing well, this pain was sudden onset and severe consistent with that. She has a high chance of passing this with expectant management. Her urinalysis shows mostly blood, no acute infection. I will have nurses give her strainers to go home with, she does not want a prescription for anything narcotic including tramadol. She will be given a prescription for ibuprofen 600 mg tablets in addition to Zofran, and we discussed reasons to return she is comfortable with that plan. Discharge Plan Triage Chief Complaint: Abd Pain Other Complaint: Nausea/Vomiting ED Provider: Arturo Cantu Dx/Rx/DC Orders Clinical Impression: Renal colic on right side, Nausea & vomiting, Ureterolithiasis Instructions: ED Kidney Stone with Pain Prescriptions: New ibuprofen 600 mg tablet 600 mg PO Q8H PRN PRN (Reason: pain) Qty: 20 0RF ondansetron 8 mg tablet,disintegrating 8 mg PO Q8H PRN (Reason: nausea and vomiting) Qty: 15 0RF Primary Care Provider: Franchesca Fournier Referrals: Noris Díaz MD [Med Staff - Active Staff] - 1 Week if not improving Print Language: Luxembourgish Disposition Disposition: Home, Self Care
[2024-06-22 21:30] LABS: Absolute Lymphocyte Count 1.46 X10^3/uL (0.83-4.51); Absolute Neutrophil Count 12.3 X10^3/uL (2.0-7.7); Basophil# 0.04 X10^3/uL; Basophil% 0.3 % (0-1); Hematocrit 38.4 % (37-47); Lymphocyte # 1.46 X10^3/ul (0.83-4.51); Lymphocyte % 10.3 % (19-41); Mean Corp Hgb Conc 33.9 g/dL (32-36); Mean Corpuscular Volume 88.5 fL (81-99); Mean Platelet Vol. 9.7 fl (6.2-12.0); Monocyte# 0.34 X10^3/uL; Monocyte% 2.4 % (0-10); NRBC Flagged by Analyzer 0 % (0-5); Neutrophil # 12.29 X10^3/uL (2.7-7.7); Neutrophil % 86.6 % (47-70); Platelet Count 279 K/mm3 (150-450); RBC Distribution Width CV 13.2 % (11.6-14.6); RBC Distribution Width SD 42.7 fl (35.1-43.9); Red Blood Count 4.34 M/mm3 (4.2-5.4); White Blood Count 14.2 K/mm3 (4.4-11.0)
[2024-06-22] MEDS: Ondansetron 4 MG/2 ML Vial IV (21:30)
[2024-06-22] MEDS: 0.9% Normal Saline (1000mL) 1,000 ML 999 ML IV (21:30)
[2024-06-22] MEDS: Ketorolac 15 MG/ML Vial IV (21:53)
[2024-06-22 22:02] LABS: AST(SGOT) 24 U/L (<=31); Alanine Aminotransfer ALT/SGPT 13 U/L (<=34); Albumin, Serum 4.7 g/dL (3.5-5.0); Alkaline Phosphatase 47 U/L (35-104); Anion Gap 12 (5-15); BUN 8 mg/dL (4-19); BUN/Creat Ratio 9.7 RATIO (10-20); Bilirubin, Direct 0.32 mg/dL (0.00-0.30); Calcium,Total 9.8 mg/dL (7.6-11.0); Carbon Dioxide 23.3 mmol/L (21.0-32.0); Chloride 100 mmol/L (98-108); Creatinine, Serum 0.86 mg/dL (0.70-1.20); EST Glomerular Filtration Rate 93 (>60); Estimated Creatinine Clearance 82.11 ml/min (50-250); Globulin 3.6 g/dL (2.2-4.2); Glucose 117 mg/dL (70-99); Lipase 19 U/L (13-75); Potassium 3.8 mmol/L (3.3-5.1); Protein, Total 8.4 g/dL (5.9-8.4); Sodium Level 135 mmol/L (133-145); Total Bilirubin 0.81 mg/dL (0.00-1.30)
[2024-06-22 22:38] LABS: Mucous, Urine 0 SEEN /hpf (<or=2+)
[2024-06-22 22:56] LABS: Color, Urine Straw (Yellow); Glucose, Dipstick Normal (Normal); Leukocyte Esterase-Dipstick 25 /ul (Negative); Nitrite-Dipstick Negative (Negative); Occult Blood-Urine 250 /ul (Negative); Protein-Dipstick 30 mg/dl (Negative); Urine Bilirubin Dipstick Negative (Negative); Urine Clarity Clear (Clear); Urine Urobilinogen Normal (Normal)
[2024-06-22 23:08] VITALS: BP 114/78; PULSE 82; RESP 16; O2SAT 99
[2024-06-22 23:36] LABS: Bacteria RARE /hpf (None Seen); Red Blood Cells-Urine 50-100 SEEN /hpf (0-5); Squamous Epithelial Cells - UA 0-5 SEEN /hpf (5-10); White Blood Cells 5-10 SEEN /hpf (0-5)
[2024-06-22 23:37] LABS: Ketone-Dipstick 150 mg/dl (Negative)
[2024-06-22 23:58] VITALS: BP 112/77; PULSE 81; RESP 18; TEMP 36.8; O2SAT 99
== END 2024-06-22 23:59 | disposition home or self-care (01) ==
PROVIDERS: Emergency Provider Emergency Medicine; PCP Internal Medicine; Visit Provider Emergency Medicine
DX: N13.2 Hydronephrosis with renal and ureteral calculous obstruction (principal); F17.290 Nicotine dependence, other tobacco product, uncomplicated
CPT/HCPCS: 74177; 80048; 80076; 81001; 83690; 85025; 96361; 96374; 96375; 99283; Q9967; A4216; J2405